=== PATIENT | female | born 2000 | race Hispanic/Latino ===

== ENCOUNTER 2018-01-15 09:36 | Emergency (ER) | payer OTHER, SELFPAY ==
[2018-01-15 11:01] LABS: Urine Bacteria 20-50 /HPF (<20); Urine Culture Reflex Order REFLEXED; Urine Mucus 1+ /HPF (NONE SEEN)
--- NOTE | 2018-01-15 11:23 | EDPHYS ---
Physician Documentation [facility] Name: Luciano Rader Age: 17 yrs Sex: Female : 2000 Arrival Date: 01/15/2018 Time: 09:39 Bed 13 Private MD: Rosalia De Oliveira ED Physician Lai Bridges HPI: 01/15 10:00 This 17 yrs old Female presents to ER via Ambulatory with complaints of Fever. pm1 10:00 The patient reports fever, not measured (subjective). Onset: The symptoms/episode pm1 began/occurred yesterday. Modifying factors: there are no obvious modifying factors. Associated signs and symptoms: Pertinent positives: sore throat, burning with urination, Pertinent negatives: cough, diarrhea, headache, nausea, vomiting. The patient has not recently seen a physician. 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 - Social history:: Smoking status: Patient/guardian denies using tobacco. ROS: 10:00 Constitutional: Negative for fever, chills, and weight loss, Eyes: Negative for injury, pm1 pain, redness, and discharge. 10:00 Neck: Negative for injury, pain, and swelling, Cardiovascular: Negative for chest pain, palpitations, and edema, Respiratory: Negative for shortness of breath, cough, wheezing, and pleuritic chest pain, Abdomen/GI: Negative for abdominal pain, nausea, vomiting, diarrhea, and constipation, Back: Negative for injury and pain. 10:00 MS/Extremity: Negative for injury and deformity, Skin: Negative for injury, rash, and discoloration, Neuro: Negative for headache, weakness, numbness, tingling, and seizure. 10:00 ENT: Positive for sore throat, Negative for ear pain, dental pain. 10:00 : Positive for burning with urination, Negative for vaginal bleeding, vaginal discharge. Exam: 10:00 Constitutional: This is a well developed, well nourished patient who is awake, alert, pm1 and in no acute distress. Head/Face: Normocephalic, atraumatic. Eyes: Pupils equal round and reactive to light, extra-ocular motions intact. Lids and lashes normal. Conjunctiva and sclera are non-icteric and not injected. Cornea within normal limits. Periorbital areas with no swelling, redness, or edema. Neck: Trachea midline, no thyromegaly or masses palpated, and no cervical lymphadenopathy. Supple, full range of motion without nuchal rigidity, or vertebral point tenderness. No Meningismus. Chest/axilla: Normal chest wall appearance and motion. Nontender with no deformity. No lesions are appreciated. Cardiovascular: Regular rate and rhythm with a normal S1 and S2. No gallops, murmurs, or rubs. No pulse deficits. Respiratory: Lungs have equal breath sounds bilaterally, clear to auscultation and percussion. No rales, rhonchi or wheezes noted. No increased work of breathing, no retractions or nasal flaring. Abdomen/GI: Soft, non-tender, with normal bowel sounds. No distension or tympany. No guarding or rebound. No evidence of tenderness throughout. Back: No spinal tenderness. No costovertebral tenderness. Full range of motion. Skin: Warm, dry with normal turgor. Normal color with no rashes, no lesions, and no evidence of cellulitis. MS/ Extremity: Pulses equal, no cyanosis. Neurovascular intact. Full, normal range of motion. 10:00 ENT: External ear(s): are unremarkable, Ear canal(s): are normal, TM's: are normal, Nose: is normal, Mouth: is normal, Posterior pharynx: Airway: normal, no evidence of obstruction, patent, Tonsils: bilaterally enlarged, with erythema, no exudate, no ulcerations. Vital Signs: 09:48 BP 122 / 77; Pulse 94; Resp 16 S; Temp 99.4(O); Pulse Ox 100% on R/A; Weight 65.77 kg jl7 (R); Height 5 ft. 1 in. (154.94 cm) (R); 10:25 BP 110 / 69; Pulse 90; Resp 16 S; Pulse Ox 100% on R/A; jl7 11:30 BP 115 / 75; Pulse 90; Resp 16; Pulse Ox 100% ; jl7 09:48 Body Mass Index 27.40 (65.77 kg, 154.94 cm) jl7 MDM: 09:45 Patient medically screened. pm1 11:21 Data reviewed: vital signs. Data interpreted: Pulse oximetry: on room air is 100 %. pm1 Interpretation: normal. Counseling: I had a detailed discussion with the patient and/or guardian regarding: the historical points, exam findings, and any diagnostic results supporting the discharge/admit diagnosis, lab results, the need for outpatient follow up, to return to the emergency department if symptoms worsen or persist or if there are any questions or concerns that arise at home. 01/15 09:52 Order name: Flu; Complete Time: 11:02 pm1 01/15 09:52 Order name: Strep; Complete Time: 11:02 pm1 01/15 10:00 Order name: Urine Microscopic Only; Complete Time: 11:02 pm1 01/15 10:04 Order name: Urine Dipstick--Ancillary (enter results); Complete Time: 11:45 2 01/15 10:04 Order name: Urine --Ancillary (enter results); Complete Time: 11:45 2 01/15 10:24 Order name: Throat Culture EDHI 01/15 09:52 Order name: Urine Dipstick-Ancillary (obtain specimen); Complete Time: 10:03 pm1 01/15 09:52 Order name: Urine Test (obtain specimen); Complete Time: 10:03 pm1 01/15 11:03 Order name: Urine Culture EDMS Administered Medications: No medications were administered Disposition: 17:13 Co-signature as Attending Physician, Lai Bridges MD. rn Disposition: 01/15/18 11:22 Discharged to Home. Impression: Acute pharyngitis, Urinary tract infection, site not specified. - Condition is Stable. - Discharge Instructions: Pharyngitis, Urinary Tract Infection. - Prescriptions for Bactrim DS 800- 160 mg Oral Tablet - take 1 tablet by ORAL route every 12 hours for 10 days; 20 tablet. - Medication Reconciliation Form, Thank You Letter, Antibiotic Education, School release form, Work release form form. - Follow up: Emergency Department; When: As needed; Reason: Worsening of condition. Follow up: Private Physician; When: 2 - 3 days; Reason: Recheck today's complaints, Continuance of care, Re-evaluation by your physician. - Problem is new. - Symptoms have improved. Signatures: Dispatcher [employer] Lai Bello MD MD rn Marinas, Patrick, WALTER CHAIR POST MACHINE OPERATOR pm1 Alex Milan RN RN jl7
--- NOTE | 2018-01-15 11:23 | ER ---
Nurse's Notes [facility] Name: Luciano Rader Age: 17 yrs Sex: Female : 2000 Arrival Date: 01/15/2018 Time: 09:39 Bed 13 Private MD: Rosalia De Oliveira Diagnosis: Acute pharyngitis;Urinary tract infection, site not specified Presentation: 01/15 09:46 Presenting complaint: Patient states: Runny nose, sore throat, fever that started jl7 yesterday. Transition of care: patient was not received from another setting of care. Onset of symptoms was January 14, 2018. Care prior to arrival: None. 09:46 Method Of Arrival: Ambulatory jl7 09:46 Acuity: CAITY 4 jl7 10:00 Initial Sepsis Screen: Does the patient meet any 2 criteria? No. Patient's initial jl7 sepsis screen is negative. Does the patient have a suspected source of infection? No. Patient's initial sepsis screen is negative. Triage Assessment: 09:48 General: Appears in no apparent distress. Behavior is calm, cooperative, appropriate jl7 for age. Pain: Complains of pain in sore throat. EENT: Throat is clear is pink. Neuro: Level of Consciousness is awake, alert, obeys commands. Cardiovascular: Patient's skin is warm and dry. Respiratory: Airway is patent Respiratory effort is even, unlabored, Respiratory pattern is regular, symmetrical, Breath sounds are clear bilaterally. Derm: Skin is pink, warm \\T\\ dry. 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 - Social history:: Smoking status: Patient/guardian denies using tobacco. Screenin:53 Abuse screen: Denies threats or abuse. Denies injuries from another. Nutritional jl7 screening: No deficits noted. Tuberculosis screening: No symptoms or risk factors identified. Fall Risk None identified. Assessment: 09:53 General: See triage assessment. jl7 10:04 Reassessment: Pt provided urine cloudy urine sample, reports "It abreu sometimes." jl7 Provider notified. Vital Signs: 09:48 BP 122 / 77; Pulse 94; Resp 16 S; Temp 99.4(O); Pulse Ox 100% on R/A; Weight 65.77 kg jl7 (R); Height 5 ft. 1 in. (154.94 cm) (R); 10:25 BP 110 / 69; Pulse 90; Resp 16 S; Pulse Ox 100% on R/A; jl7 11:30 BP 115 / 75; Pulse 90; Resp 16; Pulse Ox 100% ; jl7 09:48 Body Mass Index 27.40 (65.77 kg, 154.94 cm) 7 ED Course: 09:39 Patient arrived in ED. mr 09:40 Rosalia De Oliveira MD is Private Physician. mr 09:44 Demetri Carrillo NP is PHCP. pm1 09:44 Lai Bridges MD is Attending Physician. pm1 09:46 Alex Milan RN is Primary Nurse. jl7 09:48 Triage completed. jl7 09:48 Arm band placed on right wrist. jl7 09:53 Patient has correct armband on for positive identification. Bed in low position. Call [facility] light in reach. Side rails up X 1. Pulse ox on. NIBP on. 09:53 Flu and/or RSV swab sent to lab. Strep swab sent to lab. jl7 10:01 Urine collected: clean catch specimen, cloudy. jl7 11:48 No provider procedures requiring assistance completed. Patient did not have IV access jl during this emergency room visit. Administered Medications: No medications were administered Outcome: 11:22 Discharge ordered by . pm1 11:48 Discharged to home ambulatory. jl7 11:48 Condition: stable 11:48 Discharge instructions given to patient, Instructed on discharge instructions, follow up and referral plans. medication usage, Demonstrated understanding of instructions, follow-up care, medications, Prescriptions given X 1. 11:49 Patient left the ED. jl7 Addendum: 01/19/2018 10:21 Addendum: Culture Results: Positive urine culture. Bacteria is resistant to, has i w intermediate sensitivity, or is not tested against prescribed antibiotics. Report given to CLAUDIA for further evaluation and then to customer marketing assistant for follow up with patient. Phone call Attempt #1 pt negative for UTI symptoms. Signatures: DotySheyla Irene, RN RN iw Demetri Carrillo, OIL EXPELLER OIL EXPELLER pm1 Alex Milan, RN RN jl7
[2018-01-15 11:24] LABS: Urine Blood 1+ (NEG); Urine Glucose NEGATIVE (NEG); Urine Protein 2+ (NEG); Urine Specific Gravity >1.030 (1.005-1.030); Urine pH 5.5 (5.0-7.0)
== END 2018-01-15 11:49 | disposition home or self-care (01) ==
LOC: ER 09:36
DX: N39.0 Urinary tract infection, site not specified (principal)
CPT/HCPCS: 81003; 81015; 81025; 87070; 87077; 87081; 87086; 87088; 87186; 87804; 99283

== ENCOUNTER 2018-02-22 23:00 | Emergency (ER) | payer SELFPAY ==
--- NOTE | 2018-02-23 00:37 | EDPHYS ---
Physician Documentation [facility] Name: Luciano Rader Age: 17 yrs Sex: Female : 2000 Arrival Date: 02/22/2018 Time: 23:08 Bed 23 Private MD: ED Physician Jose Mena HPI: 02/23 00:30 This 17 yrs old Female presents to ER via Ambulatory with complaints of teena Vaginal Pain. 00:30 The patient presents with a possible exposure to a sexually transmitted disease, teena herpes. Onset: The symptoms/episode began/occurred 2 day(s) ago. Modifying factors: The symptoms are alleviated by remaining still, the symptoms are aggravated by movement, pressure, sexual intercourse, walking. Associated signs and symptoms: The patient has no apparent associated signs or symptoms. Severity of symptoms: At their worst the symptoms were moderate, in the emergency department the symptoms are unchanged. The patient is sexually active, reportedly has a single partner, female. The patient has not experienced similar symptoms in the past. 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 - Social history:: Smoking status: Patient/guardian denies using tobacco. - Ebola Screening: : No symptoms or risks identified at this time. - Family history:: not pertinent. ROS: 02/23 00:30 Constitutional: Negative for fever, chills, and weight loss, Eyes: Negative for injury, teena pain, redness, and discharge, ENT: Negative for injury, pain, and discharge, Neck: Negative for injury, pain, and swelling, Cardiovascular: Negative for chest pain, palpitations, and edema, Respiratory: Negative for shortness of breath, cough, wheezing, and pleuritic chest pain, Abdomen/GI: Negative for abdominal pain, nausea, vomiting, diarrhea, and constipation, Back: Negative for injury and pain, MS/Extremity: Negative for injury and deformity, Skin: Negative for injury, rash, and discoloration, Neuro: Negative for headache, weakness, numbness, tingling, and seizure, Psych: Negative for depression, anxiety, suicide ideation, homicidal ideation, and hallucinations, Allergy/Immunology: Negative for hives, rash, and allergies, Endocrine: Negative for neck swelling, polydipsia, polyuria, polyphagia, and marked weight changes, Hematologic/Lymphatic: Negative for swollen nodes, abnormal bleeding, and unusual bruising. : Positive for pelvic pain, burning with urination, hsv. Exam: 00:30 Constitutional: This is a well developed, well nourished patient who is awake, alert, teena and in no acute distress. Head/Face: Normocephalic, atraumatic. Eyes: Pupils equal round and reactive to light, extra-ocular motions intact. Lids and lashes normal. Conjunctiva and sclera are non-icteric and not injected. Cornea within normal limits. Periorbital areas with no swelling, redness, or edema. ENT: Nares patent. No nasal discharge, no septal abnormalities noted. Tympanic membranes are normal and external auditory canals are clear. Oropharynx with no redness, swelling, or masses, exudates, or evidence of obstruction, uvula midline. Mucous membranes moist. Neck: Trachea midline, no thyromegaly or masses palpated, and no cervical lymphadenopathy. Supple, full range of motion without nuchal rigidity, or vertebral point tenderness. No Meningismus. Chest/axilla: Normal chest wall appearance and motion. Nontender with no deformity. No lesions are appreciated. Cardiovascular: Regular rate and rhythm with a normal S1 and S2. No gallops, murmurs, or rubs. Normal PMI, no JVD. No pulse deficits. Respiratory: Lungs have equal breath sounds bilaterally, clear to auscultation and percussion. No rales, rhonchi or wheezes noted. No increased work of breathing, no retractions or nasal flaring. Abdomen/GI: Soft, non-tender, with normal bowel sounds. No distension or tympany. No guarding or rebound. No evidence of tenderness throughout. Back: No spinal tenderness. No costovertebral tenderness. Full range of motion. Skin: Warm, dry with normal turgor. Normal color with no rashes, no lesions, and no evidence of cellulitis. MS/ Extremity: Pulses equal, no cyanosis. Neurovascular intact. Full, normal range of motion. Neuro: Awake and alert, GCS 15, oriented to person, place, time, and situation. Cranial nerves II-XII grossly intact. Motor strength 5/5 in all extremities. Sensory grossly intact. Cerebellar exam normal. Normal gait. Psych: Awake, alert, with orientation to person, place and time. Behavior, mood, and affect are within normal limits. 00:30 : CVA tenderness, is absent, Pelvic Exam: External exam: Speculum exam: Vital Signs: 02/22 23:23 BP 118 / 73; Pulse 90; Resp 18; Temp 98.5(O); Pulse Ox 100% on R/A; Weight 61.69 kg; lp1 Height 5 ft. 1 in. (154.94 cm); Pain 7/10; 02/23 00:15 BP 111 / 64; Pulse 82; Resp 18; Pulse Ox 99% on R/A; lp1 01:07 BP 108 / 84; Pulse 85; Resp 18; Pulse Ox 100% on R/A; lp1 02/22 23:23 Body Mass Index 25.70 (61.69 kg, 154.94 cm) [facility] MDM: 02/22 23:52 Patient medically screened. [facility] 02/23 01:49 Data reviewed: vital signs, nurses notes, lab test result(s), EKG, radiologic studies. [facility] 02/22 23:53 Order name: Urine Microscopic Only; Complete Time: 01:47 [facility] 02/22 23:53 Order name: Urine Dipstick--Ancillary (enter results); Complete Time: 01:47 cc 02/22 23:54 Order name: Urine --Ancillary (enter results); Complete Time: 01:47 cc 02/23 00:51 Order name: HSV CULTURE W/REFLEX TYPING [facility] 02/23 01:05 Order name: Urine Culture [facility] 02/22 23:52 Order name: Urine Dipstick-Ancillary (obtain specimen); Complete Time: 23:53 cc 02/22 23:52 Order name: Urine Test (obtain specimen); Complete Time: 23:53 cc Administered Medications: 01:07 Drug: Zithromax 1 grams Route: PO; lp1 01:41 Follow up: Response: No adverse reaction lp1 01:07 Drug: Rocephin (cefTRIAXone) 1 grams Route: IM; Site: right gluteus; lp1 01:41 Follow up: Response: No adverse reaction lp1 01:07 Drug: Doxycycline 200 mg Route: PO; lp1 01:42 Follow up: Response: No adverse reaction lp1 01:07 Drug: Valtrex 1000 mg Route: PO; lp1 01:42 Follow up: Response: No adverse reaction lp1 01:52 Drug: [place] 10 mg-325 mg 1 tabs Route: PO; lp1 01:53 Follow up: Response: Medication administered at discharge. lp1 01:53 Drug: Bactrim (160 mg-800 mg (DS) 1 tablet Route: PO; lp1 01:53 Follow up: Response: Medication administered at discharge. lp1 Disposition: 02/23/18 00:36 Discharged to Home. Impression: Cystitis, Herpesviral [herpes simplex] infections - suspeceted. - Condition is Stable. - Discharge Instructions: Dysuria, Sexually Transmitted Disease, Sexually Transmitted Disease, Csle-dw-Szna, Sitz Bath. - Prescriptions for Tylenol- Codeine #3 300-30 mg Oral Tablet - take 2 tablet by ORAL route every 6 hours As needed; 30 tablet. Doxycycline Hyclate 100 mg Oral Tablet - take 1 tablet by ORAL route every 12 hours; 20 tablet. Bactrim DS 800- 160 mg Oral Tablet - take 1 tablet by ORAL route every 12 hours for 10 days; 20 tablet. - Medication Reconciliation Form, Thank You Letter, Antibiotic Education, Prescription Opioid Use form. - Follow up: Private Physician; When: 2 - 3 days; Reason: Recheck today's complaints, Continuance of care, Re-evaluation by your physician. Follow up: Jackelyn Bauer MD; When: 2 - 3 days; Reason: Recheck today's complaints, Continuance of care, Re-evaluation by your physician. - Problem is new. - Symptoms have improved. Signatures: Dispatcher [employer] [facility] Jose Mena MD MD cha Christian, Chelsea cc Pena, Laura, RN RN lp1 Corrections: (The following items were deleted from the chart) 00:52 00:34 Wound Culture+[id number].LAB.BRZ ordered. [facility] 01:54 00:36 02/23/2018 00:36 Discharged to Home. Impression: Cystitis; Herpesviral [herpes lp1 simplex] infections - suspeceted. Condition is Stable. Forms are Medication Reconciliation Form, Thank You Letter, Antibiotic Education, Prescription Opioid Use. Follow up: Private Physician; When: 2 - 3 days; Reason: Recheck today's complaints, Continuance of care, Re-evaluation by your physician. Follow up: Jackelyn Reshandra; When: 2 - 3 days; Reason: Recheck today's complaints, Continuance of care, Re-evaluation by your physician. Problem is new. Symptoms have improved. teena
--- NOTE | 2018-02-23 00:37 | ER ---
Nurse's Notes [facility] Name: Luciano Rader Age: 17 yrs Sex: Female : 2000 Arrival Date: 02/22/2018 Time: 23:08 Bed 23 Private MD: Diagnosis: Cystitis;Herpesviral [herpes simplex] infections-suspeceted Presentation: 02/22 23:22 Presenting complaint: Patient states: Vaginal pain that began 3 days ago, states today lp1 began to have "bumps down there"; States pain with urination; Denies abdominal cramping, fever, vaginal bleeding. Transition of care: patient was not received from another setting of care. Onset of symptoms was February 20, 2018. Risk Assessment: Do you want to hurt yourself or someone else? Patient reports no desire to harm self or others. Initial Sepsis Screen: Does the patient meet any 2 criteria? No. Patient's initial sepsis screen is negative. Does the patient have a suspected source of infection? No. Patient's initial sepsis screen is negative. Care prior to arrival: None. 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 - Social history:: Smoking status: Patient/guardian denies using tobacco. - Ebola Screening: : No symptoms or risks identified at this time. - Family history:: not pertinent. Screenin:25 Abuse screen: Denies threats or abuse. Denies injuries from another. Nutritional lp1 screening: No deficits noted. Tuberculosis screening: No symptoms or risk factors identified. Fall Risk None identified. Assessment: 23:26 General: Appears in no apparent distress. Behavior is calm, cooperative, appropriate lp1 for age. Pain: Complains of pain in groin Pain currently is 7 out of 10 on a pain scale. Quality of pain is described as stabbing. Neuro: Level of Consciousness is awake, alert, obeys commands. Cardiovascular: Patient's skin is warm and dry. Respiratory: Respiratory effort is even, unlabored, Respiratory pattern is regular. GI: Patient currently denies abdominal pain. : Reports burning with urination, vaginal itching. EENT: No signs and/or symptoms were reported regarding the EENT system. Derm: Skin is pink, warm \\T\\ dry. Musculoskeletal: Circulation, motion, and sensation intact. Vital Signs: 23:23 BP 118 / 73; Pulse 90; Resp 18; Temp 98.5(O); Pulse Ox 100% on R/A; Weight 61.69 kg; lp1 Height 5 ft. 1 in. (154.94 cm); Pain 7/10; 02/23 00:15 BP 111 / 64; Pulse 82; Resp 18; Pulse Ox 99% on R/A; lp1 01:07 BP 108 / 84; Pulse 85; Resp 18; Pulse Ox 100% on R/A; lp1 02/22 23:23 Body Mass Index 25.70 (61.69 kg, 154.94 cm) lp1 ED Course: 02/22 23:08 Patient arrived in ED. al2 23:22 Jennifer Young, KAMAR is Primary Nurse. lp1 23:23 Triage completed. lp1 23:23 Arm band placed on right wrist. lp1 23:25 Patient has correct armband on for positive identification. Placed in gown. Pulse ox lp1 on. NIBP on. 23:52 Jose Mena MD is Attending Physician. teena 02/23 00:34 Jackelyn Bauer MD is Referral Physician. [facility] 00:45 Wound culture swab sent to lab. lp1 01:08 No provider procedures requiring assistance completed. Patient did not have IV access lp1 during this emergency room visit. Administered Medications: 01:07 Drug: Zithromax 1 grams Route: PO; lp1 01:41 Follow up: Response: No adverse reaction lp1 01:07 Drug: Rocephin (cefTRIAXone) 1 grams Route: IM; Site: right gluteus; lp1 01:41 Follow up: Response: No adverse reaction lp1 01:07 Drug: Doxycycline 200 mg Route: PO; lp1 01:42 Follow up: Response: No adverse reaction lp1 01:07 Drug: Valtrex 1000 mg Route: PO; lp1 01:42 Follow up: Response: No adverse reaction lp1 01:52 Drug: [place] 10 mg-325 mg 1 tabs Route: PO; lp1 01:53 Follow up: Response: Medication administered at discharge. lp1 01:53 Drug: Bactrim (160 mg-800 mg (DS) 1 tablet Route: PO; lp1 01:53 Follow up: Response: Medication administered at discharge. lp1 Outcome: 00:36 Discharge ordered by . teena 01:53 Discharged to home ambulatory, with friend. lp1 01:53 Condition: good 01:53 Discharge instructions given to patient, Instructed on discharge instructions, follow up and referral plans. medication usage, Demonstrated understanding of instructions, follow-up care, medications, Prescriptions given X 3. 01:54 Patient left the ED. lp1 Signatures: Jose Mena MD MD cha Pena, Laura, RN RN lp1 Luz Butts2
[2018-02-23] MEDS ORDERED: AZITHROMYCIN 250 MG TAB ONE (00:50)
[2018-02-23] MEDS ORDERED: CEFTRIAXONE 1000 MG/VIAL ONE (00:51)
[2018-02-23] MEDS ORDERED: VALACYCLOVIR 500 MG TAB ONE (00:51)
[2018-02-23] MEDS ORDERED: DOXYCYCLINE 100 MG CAP PO ONE (00:51)
[2018-02-23] MEDS ORDERED: WATER FOR INJ,STERILE 10 ML ONE (00:52)
[2018-02-23 01:02] LABS: Urine Specific Gravity >1.030 (1.005-1.030)
[2018-02-23 01:02] LABS: Urine Blood 1+ (NEG); Urine Glucose NEGATIVE (NEG); Urine Protein NEGATIVE (NEG); Urine Specific Gravity >1.030 (1.005-1.030); Urine pH 5.5 (5.0-7.0)
[2018-02-23 01:04] LABS: Urine Bacteria 20-50 /HPF (<20); Urine Culture Reflex Order REFLEXED; Urine Mucus 2+ /HPF (NONE SEEN); Urine RBC <5 /HPF (NONE SEEN)
[2018-02-23] MEDS ORDERED: HYDROCODONE/APAP 10/325 TAB ONE (01:51)
[2018-02-23] MEDS ORDERED: SMZ./TMP. 800/160 MG TABLET ONE (01:51)
[2018-02-27 15:13] LABS: HSV CULTURE W/REFLEX TYPING REPORT
== END 2018-02-23 01:54 | disposition home or self-care (01) ==
LOC: ER 23:00
DX: N30.90 Cystitis, unspecified without hematuria (principal)
CPT/HCPCS: 81003; 81015; 81025; 87086; 87088; 87252; 96372; 99284

== ENCOUNTER 2018-07-07 11:29 | Emergency (ER) | payer OTHER, SELFPAY ==
--- NOTE | 2018-07-07 12:59 | ER ---
Nurse's Notes [facility] Name: Luciano Santiago Age: 17 yrs Sex: Female : 2000 Arrival Date: 07/07/2018 Time: 11:33 Bed 9 Private MD: None, None Diagnosis: Acute pharyngitis Presentation: 07/07 11:36 Presenting complaint: Patient states: i woke up today with fever and runny nose and hj sore throat; T- 101.1; took tylenol; its hard to swallow;. Transition of care: patient was not received from another setting of care. Onset of symptoms was July 07, 2018. Risk Assessment: Do you want to hurt yourself or someone else? Patient reports no desire to harm self or others. Initial Sepsis Screen: Does the patient meet any 2 criteria? No. Patient's initial sepsis screen is negative. Does the patient have a suspected source of infection? No. Patient's initial sepsis screen is negative. Care prior to arrival: None. 11:36 Method Of Arrival: Ambulatory 11:36 Acuity: CAITY 4 hj Triage Assessment: 11:38 General: Appears in no apparent distress. uncomfortable, Behavior is calm, cooperative, hj appropriate for age. Pain: Complains of pain in throat. EENT: Reports pain when swallowing. 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 - Social history:: Smoking status: Patient/guardian denies using tobacco, Patient/guardian denies using alcohol. - Ebola Screening: : Patient negative for fever greater than or equal to 101.5 degrees Fahrenheit, and additional compatible Ebola Virus Disease symptoms Patient denies exposure to infectious person Patient denies travel to an Ebola-affected area in the 21 days before illness onset. Screenin:38 Abuse screen: Denies threats or abuse. Denies injuries from another. Nutritional hj screening: No deficits noted. Tuberculosis screening: No symptoms or risk factors identified. Fall Risk None identified. Assessment: 11:38 Respiratory: Airway is patent Respiratory effort is even, unlabored, Respiratory hj pattern is regular, symmetrical, Breath sounds are clear. EENT: Throat. Vital Signs: 11:38 Pulse 71; Resp 18; Temp 98.6(O); Pulse Ox 100% on R/A; Weight 56.7 kg; Height 5 ft. 1 hj in. (154.94 cm); Pain 8/10; 13:24 BP 120 / 80; Pulse 75; Resp 18; Pulse Ox 100% on R/A; hj 11:38 Body Mass Index 23.62 (56.70 kg, 154.94 cm) hj ED Course: 11:33 Patient arrived in ED. mr 11:33 None, None is Private Physician. mr 11:37 Triage completed. hj 11:38 Arm band placed on left wrist. hj 11:40 Patient has correct armband on for positive identification. Bed in low position. Call hj light in reach. Side rails up X 1. 11:42 [facility] kb 11:43 Ben Aiken MD is Attending Physician. kb 12:04 Strep Sent. hj 12:04 Flu Sent. hj 12:45 Nakul Farrell, RN is Primary Nurse. hj 13:24 No provider procedures requiring assistance completed. Patient did not have IV access hj during this emergency room visit. Administered Medications: No medications were administered Outcome: 12:58 Discharge ordered by . kb 13:24 Discharged to home ambulatory, with family. hj 13:24 Condition: stable 13:24 Discharge instructions given to patient, family, Instructed on discharge instructions, follow up and referral plans. Demonstrated understanding of instructions, follow-up care. 13:24 Patient left the ED. hj Signatures: Rona Vernon FNP-C FNP-Ckb RiveraJosefa mr Nakul Farrell, RN RN abhinav
--- NOTE | 2018-07-07 12:59 | EDPHYS ---
Physician Documentation [facility] Name: Luciano Santiago Age: 17 yrs Sex: Female : 2000 Arrival Date: 07/07/2018 Time: 11:33 Bed 9 Private MD: None, None ED Physician Ben Aiken HPI: 07/07 13:10 This 17 yrs old Female presents to ER via Ambulatory with complaints of Sore kb Throat. 13:10 The patient presents with sore throat. The patient describes throat pain as constant. kb Onset: The symptoms/episode began/occurred 2 day(s) ago, and became worse this morning. Severity of symptoms: At their worst the symptoms were moderate, in the emergency department the symptoms are unchanged. Modifying factors: The symptoms are alleviated by nothing, the symptoms are aggravated by swallowing. Associated signs and symptoms: Pertinent positives: fever, rhinorrhea. The patient has not experienced similar symptoms in the past. The patient has not recently seen a physician. 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 - Social history:: Smoking status: Patient/guardian denies using tobacco, Patient/guardian denies using alcohol. - Ebola Screening: : Patient negative for fever greater than or equal to 101.5 degrees Fahrenheit, and additional compatible Ebola Virus Disease symptoms Patient denies exposure to infectious person Patient denies travel to an Ebola-affected area in the 21 days before illness onset. ROS: 12:59 Cardiovascular: Negative for chest pain, palpitations, and edema, Respiratory: Negative kb for shortness of breath, cough, wheezing, and pleuritic chest pain, Abdomen/GI: Negative for abdominal pain, nausea, vomiting, diarrhea, and constipation, Back: Negative for injury and pain, MS/Extremity: Negative for injury and deformity, Skin: Negative for injury, rash, and discoloration, Neuro: Negative for headache, weakness, numbness, tingling, and seizure. 12:59 Constitutional: Positive for fever, Negative for body aches, chills, fatigue, malaise, poor PO intake, weight loss. 12:59 ENT: Positive for rhinorrhea, sore throat. Exam: 12:59 Constitutional: This is a well developed, well nourished patient who is awake, alert, kb and in no acute distress. Head/Face: Normocephalic, atraumatic. Chest/axilla: Normal chest wall appearance and motion. Nontender with no deformity. No lesions are appreciated. Cardiovascular: Regular rate and rhythm with a normal S1 and S2. No gallops, murmurs, or rubs. Normal PMI, no JVD. No pulse deficits. Respiratory: Lungs have equal breath sounds bilaterally, clear to auscultation and percussion. No rales, rhonchi or wheezes noted. No increased work of breathing, no retractions or nasal flaring. Abdomen/GI: Soft, non-tender, with normal bowel sounds. No distension or tympany. No guarding or rebound. No evidence of tenderness throughout. Back: No spinal tenderness. No costovertebral tenderness. Full range of motion. Skin: Warm, dry with normal turgor. Normal color with no rashes, no lesions, and no evidence of cellulitis. MS/ Extremity: Pulses equal, no cyanosis. Neurovascular intact. Full, normal range of motion. Neuro: Awake and alert, GCS 15, oriented to person, place, time, and situation. Cranial nerves II-XII grossly intact. Motor strength 5/5 in all extremities. Sensory grossly intact. Cerebellar exam normal. Normal gait. 12:59 ENT: Posterior pharynx: Airway: normal, no evidence of obstruction, Tonsils: with erythema, Uvula: normal, midline, swelling, is not appreciated, erythema, that is moderate, exudate, is not appreciated. Vital Signs: 11:38 Pulse 71; Resp 18; Temp 98.6(O); Pulse Ox 100% on R/A; Weight 56.7 kg; Height 5 ft. 1 hj in. (154.94 cm); Pain 8/10; 13:24 BP 120 / 80; Pulse 75; Resp 18; Pulse Ox 100% on R/A; hj 11:38 Body Mass Index 23.62 (56.70 kg, 154.94 cm) MDM: 12:41 Patient medically screened. shaneka 13:08 Data reviewed: vital signs, nurses notes. Data interpreted: Pulse oximetry: on room air kb is 100 %. Interpretation: normal. Counseling: I had a detailed discussion with the patient and/or guardian regarding: the historical points, exam findings, and any diagnostic results supporting the discharge/admit diagnosis, lab results, the need for outpatient follow up, a family practitioner, to return to the emergency department if symptoms worsen or persist or if there are any questions or concerns that arise at home. 07/07 11:40 Order name: Flu; Complete Time: 12:35 hj 07/07 11:40 Order name: Strep; Complete Time: 12:18 hj 07/07 12:22 Order name: Throat Culture EDMS Administered Medications: No medications were administered Disposition: 07/08 10:41 Co-signature as Attending Physician, Ben Aiken MD. ma2 Disposition: 07/07/18 12:58 Discharged to Home. Impression: Acute pharyngitis. - Condition is Stable. - Discharge Instructions: Pharyngitis, [id number], Viral Respiratory Infection, [id number]. - Medication Reconciliation Form, Thank You Letter, Antibiotic Education, Prescription Opioid Use, Work release form, Family Work Release form. - Follow up: Emergency Department; When: As needed; Reason: Worsening of condition. Follow up: Private Physician; When: 2 - 3 days; Reason: Recheck today's complaints, Continuance of care, Re-evaluation by your physician. Signatures: Dispatcher [employer] EDND Rona Vernon FNP-C FNP-Ckb Joaquin, Henry, RN RN hj Alzahri, Mohammad, MD MD ma2 Corrections: (The following items were deleted from the chart) 07/07 13:24 12:58 07/07/2018 12:58 Discharged to Home. Impression: Acute pharyngitis. Condition is hj Stable. Forms are Medication Reconciliation Form, Thank You Letter, Antibiotic Education, Prescription Opioid Use. Follow up: Emergency Department; When: As needed; Reason: Worsening of condition. Follow up: Private Physician; When: 2 - 3 days; Reason: Recheck today's complaints, Continuance of care, Re-evaluation by your physician. kb
== END 2018-07-07 13:24 | disposition home or self-care (01) ==
LOC: ER 11:29
DX: J02.9 Acute pharyngitis, unspecified (principal)
CPT/HCPCS: 87070; 87081; 87804; 99283

== ENCOUNTER 2019-04-01 08:09 | Emergency (ER) | payer SELFPAY ==
[2019-04-01] MEDS ORDERED: NA CHLORIDE 0.9% 1,000 ML ONE (08:52)
[2019-04-01] MEDS ORDERED: FAMOTIDINE 20 MG/2 ML VIAL IV ONE (08:52)
[2019-04-01] MEDS ORDERED: MORPHINE 2 MG/ML SYR ONE ×2 (08:52→09:39)
[2019-04-01] MEDS ORDERED: ONDANSETRON 4 MG/2 ML VIAL ONE (08:52)
[2019-04-01 09:17] LABS: Absolute Lymphocytes (CBC) 0.5 K/uL (0.7-4.9); Basophils % 0.1 % (0-1.3); Eosinophils % 0.8 % (0-4.4); Hematocrit 40.7 % (36.0-45.0); Lymphocytes % 5.9 % (15.3-44.8); MPV 8.4 fL (7.6-11.3); Monocytes % 4.7 % (3.3-12.3); RBC Red Blood Cell Count 4.93 M/uL (3.86-4.86)
--- NOTE | 2019-04-01 09:29 | RAD REPORT ---
EXAM DESCRIPTION: US - Abdomen Exam Limited - 04/01/2019 9:16 am CLINICAL HISTORY: Abdominal pain. COMPARISON: None. FINDINGS: The gallbladder wall is not thickened. A gallstone is not seen. The biliary tree is normal caliber. IMPRESSION: Unremarkable gallbladder ultrasound.
[2019-04-01 09:38] LABS: ALT/SGPT 25 U/L (12-78); AST/SGOT 20 U/L (15-37); Albumin 3.6 g/dL (3.4-5.0); Alkaline Phosphatase 72 U/L (45-117); BUN Blood Urea Nitrogen 19 mg/dL (7-18); Bicarbonate 24 mmol/L (21-32); Bilirubin Direct < 0.1 mg/dL (0-0.2); Bilirubin Total 0.5 mg/dL (0.2-1.0); Glucose Level 100 mg/dL (74-106); Lipase 135 U/L (73-393); Potassium 3.9 mmol/L (3.5-5.1); Protein, Total 7.1 g/dL (6.4-8.2); Sodium Level 143 mmol/L (136-145)
--- NOTE | 2019-04-01 10:58 | EDPHYS ---
Physician Documentation [facility] Name: Luciano Santiago Age: 18 yrs Sex: Female : 2000 Arrival Date: 04/01/2019 Time: 08:14 Bed 19 Private MD: ED Physician Jose Mena HPI: 04/01 08:29 This 18 yrs old Female presents to ER via Ambulatory with complaints of teena Vomiting, Epigastric Pain, Back Pain. 08:29 The patient presents to the emergency department with nausea, vomiting, that is teena continuous. Onset: The symptoms/episode began/occurred 1 day(s) ago. Possible causes: unknown. The symptoms are aggravated by pressure, food , The symptoms are alleviated by nothing. Associated signs and symptoms: The patient has no apparent associated signs or symptoms. Severity of symptoms: At their worst the symptoms were mild moderate in the emergency department the symptoms are unchanged. The patient has not experienced similar symptoms in the past. 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 - Social history:: Smoking status: Patient/guardian denies using tobacco. - Ebola Screening: : No symptoms or risks identified at this time. - Family history:: not pertinent. ROS: 08:29 Constitutional: Negative for fever, chills, and weight loss, Eyes: Negative for injury, teena pain, redness, and discharge, ENT: Negative for injury, pain, and discharge, Neck: Negative for injury, pain, and swelling, Cardiovascular: Negative for chest pain, palpitations, and edema, Respiratory: Negative for shortness of breath, cough, wheezing, and pleuritic chest pain, Back: Negative for injury and pain, : Negative for injury, bleeding, discharge, and swelling, MS/Extremity: Negative for injury and deformity, Skin: Negative for injury, rash, and discoloration, Neuro: Negative for headache, weakness, numbness, tingling, and seizure, Psych: Negative for depression, anxiety, suicide ideation, homicidal ideation, and hallucinations, Allergy/Immunology: Negative for hives, rash, and allergies, Endocrine: Negative for neck swelling, polydipsia, polyuria, polyphagia, and marked weight changes, Hematologic/Lymphatic: Negative for swollen nodes, abnormal bleeding, and unusual bruising. 08:29 Abdomen/GI: Positive for abdominal pain, of the epigastric area, right upper quadrant and left upper quadrant. Exam: 08:29 Constitutional: This is a well developed, well nourished patient who is awake, alert, teena and in no acute distress. Head/Face: Normocephalic, atraumatic. Eyes: Pupils equal round and reactive to light, extra-ocular motions intact. Lids and lashes normal. Conjunctiva and sclera are non-icteric and not injected. Cornea within normal limits. Periorbital areas with no swelling, redness, or edema. ENT: Nares patent. No nasal discharge, no septal abnormalities noted. Tympanic membranes are normal and external auditory canals are clear. Oropharynx with no redness, swelling, or masses, exudates, or evidence of obstruction, uvula midline. Mucous membranes moist. Neck: Trachea midline, no thyromegaly or masses palpated, and no cervical lymphadenopathy. Supple, full range of motion without nuchal rigidity, or vertebral point tenderness. No Meningismus. Chest/axilla: Normal chest wall appearance and motion. Nontender with no deformity. No lesions are appreciated. Cardiovascular: Regular rate and rhythm with a normal S1 and S2. No gallops, murmurs, or rubs. Normal PMI, no JVD. No pulse deficits. Respiratory: Lungs have equal breath sounds bilaterally, clear to auscultation and percussion. No rales, rhonchi or wheezes noted. No increased work of breathing, no retractions or nasal flaring. Back: No spinal tenderness. No costovertebral tenderness. Full range of motion. Skin: Warm, dry with normal turgor. Normal color with no rashes, no lesions, and no evidence of cellulitis. MS/ Extremity: Pulses equal, no cyanosis. Neurovascular intact. Full, normal range of motion. Neuro: Awake and alert, GCS 15, oriented to person, place, time, and situation. Cranial nerves II-XII grossly intact. Motor strength 5/5 in all extremities. Sensory grossly intact. Cerebellar exam normal. Normal gait. Psych: Awake, alert, with orientation to person, place and time. Behavior, mood, and affect are within normal limits. 08:29 Abdomen/GI: Inspection: distension, Bowel sounds: normal, Palpation: moderate abdominal tenderness, in the epigastric area, right upper quadrant and left upper quadrant, Liver: is firm, Hernia: not appreciated. Vital Signs: 08:17 BP 112 / 74; Pulse 82; Resp 16 S; Temp 98.5(O); Pulse Ox 100% on R/A; Weight 70.76 kg aa5 (R); Height 5 ft. 1 in. (154.94 cm) (R); Pain 10/10; 09:30 BP 110 / 71; Pulse 80; Resp 16 S; Pulse Ox 100% on R/A; aa5 08:17 Body Mass Index 29.48 (70.76 kg, 154.94 cm) aa5 MDM: 08:18 Patient medically screened. [facility] 08:31 Data reviewed: vital signs, nurses notes, lab test result(s), radiologic studies, CT teena scan. 04/01 08:29 Order name: CBC with Diff [facility] 04/01 08:44 Order name: Urine Dipstick--Ancillary (enter results) [facility] 04/01 08:29 Order name: IV Saline Lock; Complete Time: 08:53 [facility] 04/01 08:29 Order name: US Abdomen Limited [facility] 04/01 08:44 Order name: Urine --Ancillary (enter results) [facility] 04/01 08:29 Order name: Labs collected and sent; Complete Time: 08:54 [facility] 04/01 08:29 Order name: Urine Dipstick-Ancillary (obtain specimen); Complete Time: 08:34 [facility] 04/01 08:29 Order name: Urine Test (obtain specimen); Complete Time: 08:34 [facility] Administered Medications: 08:45 Drug: NS 0.9% 1000 ml Route: IV; Rate: 1 bolus; Site: right antecubital; aa5 08:45 Drug: Pepcid 20 mg Route: IVP; Site: right antecubital; aa5 08:50 Follow up: Response: No adverse reaction aa5 08:45 Drug: Zofran 4 mg Route: IVP; Site: right antecubital; aa5 08:50 Follow up: Response: No adverse reaction aa5 08:47 Drug: morphine 2 mg Route: IVP; Site: right antecubital; aa5 08:50 Follow up: Response: No adverse reaction [facility] 09:26 Drug: morphine 2 mg Route: IVP; Site: right antecubital; 5 09:35 Follow up: Response: No adverse reaction [facility] Disposition: 04/01/19 10:09 Discharged to Home. Impression: Vomiting, Abdominal tenderness, Functional dyspepsia, Urinary tract infection, site not specified. - Condition is Stable. - Discharge Instructions: Abdominal Pain, Adult, Dysuria, Abdominal Pain, Adult, [id number], Form - Excuse from Work, School, or Physical Activity. - Prescriptions for Pepcid 20 mg Oral Tablet - take 1 tablet by ORAL route every 12 hours for 10 days; 20 tablet. Zofran 4 mg Oral Tablet - take 1 tablet by ORAL route every 12 hours As needed; 20 tablet. Cipro 250 mg Oral Tablet - take 1 tablet by ORAL route every 12 hours; 10 tablet. - Medication Reconciliation Form, Thank You Letter, Antibiotic Education, Prescription Opioid Use, Work release form form. - Follow up: Private Physician; When: 2 - 3 days; Reason: Recheck today's complaints, Continuance of care, Re-evaluation by your physician. Follow up: Emir Jean Baptiste; When: 2 - 3 days; Reason: Recheck today's complaints, Re-evaluation by your physician. - Problem is new. - Symptoms have improved. Signatures: Dispatcher [employer] EDJose Duarte MD MD cha Calderon, Audri, RN RN aa5 Billy Santiago RN RN tr5 Corrections: (The following items were deleted from the chart) 10:17 10:09 04/01/2019 10:09 Discharged to Home. Impression: Vomiting; Abdominal tenderness; teena Functional dyspepsia. Condition is Stable. Discharge Instructions: Abdominal Pain, Adult, Abdominal Pain, Adult, [id number]. Prescriptions for Pepcid 20 mg Oral Tablet - take 1 tablet by ORAL route every 12 hours for 10 days; 20 tablet, Zofran 4 mg Oral Tablet - take 1 tablet by ORAL route every 12 hours As needed; 20 tablet. and Forms are Medication Reconciliation Form, Thank You Letter, Antibiotic Education, Prescription Opioid Use. Follow up: Private Physician; When: 2 - 3 days; Reason: Recheck today's complaints, Continuance of care, Re-evaluation by your physician. Follow up: Emir Jean Baptiste; When: 2 - 3 days; Reason: Recheck today's complaints, Re-evaluation by your physician. Problem is new. Symptoms have improved. [facility] 10:35 10:17 04/01/2019 10:09 Discharged to Home. Impression: Vomiting; Abdominal tenderness; tr5 Functional dyspepsia; Urinary tract infection, site not specified. Condition is Stable. Discharge Instructions: Abdominal Pain, Adult, Abdominal Pain, Adult, [id number], Dysuria. Prescriptions for Pepcid 20 mg Oral Tablet - take 1 tablet by ORAL route every 12 hours for 10 days; 20 tablet, Zofran 4 mg Oral Tablet - take 1 tablet by ORAL route every 12 hours As needed; 20 tablet, Cipro 250 mg Oral Tablet - take 1 tablet by ORAL route every 12 hours; 10 tablet. and Forms are Medication Reconciliation Form, Thank You Letter, Antibiotic Education, Prescription Opioid Use. Follow up: Private Physician; When: 2 - 3 days; Reason: Recheck today's complaints, Continuance of care, Re-evaluation by your physician. Follow up: Emir Jean Baptiste; When: 2 - 3 days; Reason: Recheck today's complaints, Re-evaluation by your physician. Problem is new. Symptoms have improved. [facility]
--- NOTE | 2019-04-01 10:59 | ER ---
Nurse's Notes [facility] Name: Luciano Santiago Age: 18 yrs Sex: Female : 2000 Arrival Date: 04/01/2019 Time: 08:14 Bed 19 Private MD: Diagnosis: Vomiting;Abdominal tenderness;Functional dyspepsia;Urinary tract infection, site not specified Presentation: 04/01 08:15 Presenting complaint: Patient states: upper abd pain radiating to back that began last aa5 night. Pt also c/o nausea and vomiting. Denies diarrhea. 08:15 Transition of care: patient was not received from another setting of care. Onset of aa5 symptoms was March 2019. Risk Assessment: Do you want to hurt yourself or someone else? Patient reports no desire to harm self or others. Initial Sepsis Screen: Does the patient meet any 2 criteria? No. Patient's initial sepsis screen is negative. Does the patient have a suspected source of infection? No. Patient's initial sepsis screen is negative. Care prior to arrival: None. 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 - Social history:: Smoking status: Patient/guardian denies using tobacco. - Ebola Screening: : No symptoms or risks identified at this time. - Family history:: not pertinent. Screenin:20 Abuse screen: Denies threats or abuse. Nutritional screening: No deficits noted. aa5 Tuberculosis screening: No symptoms or risk factors identified. Fall Risk None identified. Assessment: 08:20 General: Appears comfortable, Behavior is calm, cooperative. Pain: Complains of pain in aa5 epigastric area, right upper quadrant and left upper quadrant Pain radiates to left subscapular area and right subscapular area Pain currently is 10 out of 10 on a pain scale. Quality of pain is described as sharp, Pain began "last night" Is continuous. Neuro: Level of Consciousness is awake, alert, obeys commands, Oriented to person, place, time, situation. Cardiovascular: Heart tones S1 S2 present Rhythm is regular. Respiratory: Airway is patent Respiratory effort is even, unlabored, Respiratory pattern is regular, symmetrical. GI: Abdomen is round non-distended, Bowel sounds present X 4 quads. Abd is soft X 4 quads Abdomen is tender to palpation in epigastric area and right upper quadrant Reports nausea, vomiting, Patient currently denies diarrhea. : Denies burning with urination, inability to void, urinary frequency, urgency. EENT: No signs and/or symptoms were reported regarding the EENT system. Derm: Skin is dry, Skin is yellow, Skin temperature is warm. Musculoskeletal: Range of motion: intact in all extremities. 08:50 Reassessment: Pt notified of wait time for US. Pt sitting up in bed. Pt resting with aa5 eyes closed, respirations even and unlabored. . 09:22 Reassessment: Pt back from US. Pt rates pain 8/10 on a pain scale. Pt states "the pain aa5 is only a little better". Pt sitting up in bed, A\\T\\O x 4, equal unlabored respirations. . 09:35 Reassessment: Pt now resting in bed with eyes closed, respirations even and unlabored, aa5 skin is yellow/warm/dry.. Vital Signs: 08:17 BP 112 / 74; Pulse 82; Resp 16 S; Temp 98.5(O); Pulse Ox 100% on R/A; Weight 70.76 kg aa5 (R); Height 5 ft. 1 in. (154.94 cm) (R); Pain 10/10; 09:30 BP 110 / 71; Pulse 80; Resp 16 S; Pulse Ox 100% on R/A; aa5 08:17 Body Mass Index 29.48 (70.76 kg, 154.94 cm) aa5 ED Course: 08:14 Patient arrived in ED. as 08:15 Arm band placed on Patient placed in an exam room, on a stretcher. aa5 08:15 Patient has correct armband on for positive identification. aa5 08:18 Jose Mena MD is Attending Physician. [facility] 08:26 Lorelei Guerra, RN is Primary Nurse. aa5 08:27 Triage completed. aa5 08:40 Initial lab(s) drawn, by me, sent to lab. Inserted saline lock: 20 gauge in right aa5 antecubital area, using aseptic technique. Blood collected. 08:40 No provider procedures requiring assistance completed. aa5 10:09 Emir Jean Baptiste MD is Referral Physician. teena 10:35 IV discontinued. tr5 Administered Medications: 08:45 Drug: NS 0.9% 1000 ml Route: IV; Rate: 1 bolus; Site: right antecubital; aa5 08:45 Drug: Pepcid 20 mg Route: IVP; Site: right antecubital; aa5 08:50 Follow up: Response: No adverse reaction aa5 08:45 Drug: Zofran 4 mg Route: IVP; Site: right antecubital; aa5 08:50 Follow up: Response: No adverse reaction aa5 08:47 Drug: morphine 2 mg Route: IVP; Site: right antecubital; aa5 08:50 Follow up: Response: No adverse reaction aa5 09:26 Drug: morphine 2 mg Route: IVP; Site: right antecubital; aa5 09:35 Follow up: Response: No adverse reaction aa5 Outcome: 10:09 Discharge ordered by . [facility] 10:34 Discharged to home ambulatory. tr5 10:34 Condition: stable 10:34 Discharge instructions given to patient, Instructed on discharge instructions, follow up and referral plans. medication usage, Demonstrated understanding of instructions, follow-up care, medications, Prescriptions given X 3. 10:35 Patient left the ED. tr5 Signatures: Jose Mena MD MD cha Martinez, Amelia as Calderon, Audri RN RN aa5 Billy Santiago RN RN tr5
[2019-04-01 11:02] LABS: Urine Blood 3+ (NEG); Urine Glucose NEGATIVE (NEG); Urine Protein TRACE (NEG)
[2019-04-01 11:59] LABS: Blood Morphology Comment NOT SEEN (NOT SEEN); Platelet Estimate ADEQ; Urine White Blood Cell Casts OK
== END 2019-04-01 10:35 | disposition home or self-care (01) ==
LOC: ER 08:09
DX: R11.2 Nausea with vomiting, unspecified (principal); R10.10 Upper abdominal pain, unspecified
CPT/HCPCS: 36415; 76705; 80048; 80076; 81003; 81025; 83690; 85025; 96374; 96375; 99284; J2270; J2405; J7030

== ENCOUNTER 2019-04-03 20:11 | Emergency (ER) | payer SELFPAY ==
--- NOTE | 2019-04-03 21:05 | ER ---
Nurse's Notes [facility] Name: Luciano Santiago Age: 18 yrs Sex: Female : 2000 Arrival Date: 04/03/2019 Time: 20:14 Bed 17 [facility] MD: Diagnosis: Upper abdominal pain, unspecified Presentation: 04/03 20:17 Presenting complaint: Patient states: abd pain and upper back pain sine 04/01/19 after ak1 being seen in ER. 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 Transition of care: patient was not received from another setting of care. Onset of symptoms is unknown. Risk Assessment: Do you want to hurt yourself or someone else? Patient reports no desire to harm self or others. Initial Sepsis Screen: Does the patient meet any 2 criteria? No. Patient's initial sepsis screen is negative. Does the patient have a suspected source of infection? No. Patient's initial sepsis screen is negative. Care prior to arrival: None. 20:17 Method Of Arrival: Ambulatory ak1 20:17 Acuity: CAITY 3 ak1 Triage Assessment: 20:18 General: Appears uncomfortable, Behavior is calm, cooperative. 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 - Social history:: Smoking status: Patient/guardian denies using tobacco. - Ebola Screening: : No symptoms or risks identified at this time. Screenin:41 Abuse screen: Denies threats or abuse. Denies injuries from another. Nutritional cc3 screening: No deficits noted. Tuberculosis screening: No symptoms or risk factors identified. Fall Risk Ambulatory Aid- None/Bed Rest/Nurse Assist (0 pts). Gait- Normal/Bed Rest/Wheelchair (0 pts) Mental Status- Oriented to own ability (0 pts). Assessment: 20:41 General: Appears in no apparent distress. uncomfortable, Behavior is calm, cooperative, cc3 appropriate for age. Pain: Complains of pain in upper back pain, abdomen. Neuro: Level of Consciousness is awake, alert, obeys commands, Oriented to person, place, time, situation, Appropriate for age. Cardiovascular: Denies chest pain, Capillary refill < 3 seconds Patient's skin is warm and dry. Respiratory: Airway is patent Respiratory effort is even, unlabored, Respiratory pattern is regular, symmetrical. GI: Abdomen is round non-distended. : No signs and/or symptoms were reported regarding the genitourinary system. EENT: No signs and/or symptoms were reported regarding the EENT system. Derm: Skin is intact, is healthy with good turgor, Skin is pink, warm \T\ dry. normal. Musculoskeletal: Circulation, motion, and sensation intact. Range of motion: intact in all extremities. 21:30 Reassessment: Patient appears in no apparent distress at this time. Patient and/or cc3 family updated on plan of care and expected duration. Pain level reassessed. Patient is alert, oriented x 3, equal unlabored respirations, skin warm/dry/pink. PARTS SALES ASSOCIATE Saulo discharged the patient home with prescription given. No IV cannula in situ. Patient left ER vitally stable and ambulatory with her friend. No valuables left in the patient's room. Patient states feeling better. Patient states symptoms have improved. Vital Signs: 20:16 BP 126 / 68; Pulse 76; Resp 16; Temp 98.1; Pulse Ox 100% on R/A; Weight 70.76 kg (R); ak1 Height 5 ft. 1 in. (154.94 cm) (R); Pain 8/10; 21:18 BP 120 / 67; Pulse 75; Resp 15 S; Pulse Ox 100% on R/A; cc3 20:16 Body Mass Index 29.48 (70.76 kg, 154.94 cm) ak1 ED Course: 20:14 Patient arrived in ED. mr 20:16 Arm band placed on Patient placed in an exam room, on a stretcher, Patient notified of ak1 wait time. 20:18 Triage completed. ak1 20:28 Rona Vernon FNP-C [facility]. kb 20:28 Kale Cabrera MD is Attending Physician. kb 20:41 Gina Fox is Primary Nurse. cc3 20:41 Patient has correct armband on for positive identification. Bed in low position. Call cc3 light in reach. Side rails up X 1. Pulse ox on. NIBP on. 21:30 No provider procedures requiring assistance completed. Patient did not have IV access cc3 during this emergency room visit. Administered Medications: No medications were administered Outcome: 21:04 Discharge ordered by . shaneka 21:30 Discharged to home ambulatory, with friend. cc3 21:30 Condition: stable 21:30 Discharge instructions given to patient, Instructed on discharge instructions, follow up and referral plans. medication usage, Demonstrated understanding of instructions, follow-up care, medications, Prescriptions given X 2. 21:34 Patient left the ED. cc3 Signatures: Rona Vernon, DIRECTOR OF SCOUT WORK-C DIRECTOR OF SCOUT WORK-Josefa Abrams mr Kinza Hudson, RN RN ak1 Gina Fox cc3
--- NOTE | 2019-04-03 21:05 | EDPHYS ---
Physician Documentation [facility] Name: Luciano Santiago Age: 18 yrs Sex: Female : 2000 Arrival Date: 04/03/2019 Time: 20:14 Bed 17 Private MD: ED Physician Kale Cabrera HPI: 04/03 21:00 This 18 yrs old Female presents to ER via Ambulatory with complaints of kb Abdominal Pain. 21:00 The patient presents with abdominal pain in the upper abdomen. Onset: The kb symptoms/episode began/occurred today. The symptoms do not radiate. Associated signs and symptoms: none. The symptoms are described as intermittent. 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 Severity of pain: At its worst the pain was moderate in the emergency department the pain has resolved. The patient has experienced similar episodes in the past. The patient has been recently seen at the [facility] Emergency Department, this week, for similar complaints. Pt reports she was seen on 04/01/19 for upper abd pain. 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 - Social history:: Smoking status: Patient/guardian denies using tobacco. - Ebola Screening: : No symptoms or risks identified at this time. ROS: 21:00 Constitutional: Negative for fever, chills, and weight loss, Cardiovascular: Negative kb for chest pain, palpitations, and edema, Respiratory: Negative for shortness of breath, cough, wheezing, and pleuritic chest pain, Back: Negative for injury and pain, : Negative for injury, bleeding, discharge, and swelling, MS/Extremity: Negative for injury and deformity, Skin: Negative for injury, rash, and discoloration, Neuro: Negative for headache, weakness, numbness, tingling, and seizure. 21:00 Abdomen/GI: Positive for abdominal pain, Negative for nausea, vomiting, and diarrhea. Exam: 21:00 Constitutional: This is a well developed, well nourished patient who is awake, alert, kb and in no acute distress. Head/Face: Normocephalic, atraumatic. ENT: Nares patent. No nasal discharge, no septal abnormalities noted. Tympanic membranes are normal and external auditory canals are clear. Oropharynx with no redness, swelling, or masses, exudates, or evidence of obstruction, uvula midline. Mucous membranes moist. Neck: Trachea midline, no thyromegaly or masses palpated, and no cervical lymphadenopathy. Supple, full range of motion without nuchal rigidity, or vertebral point tenderness. No Meningismus. Chest/axilla: Normal chest wall appearance and motion. Nontender with no deformity. No lesions are appreciated. Cardiovascular: Regular rate and rhythm with a normal S1 and S2. No gallops, murmurs, or rubs. Normal PMI, no JVD. No pulse deficits. Respiratory: Lungs have equal breath sounds bilaterally, clear to auscultation and percussion. No rales, rhonchi or wheezes noted. No increased work of breathing, no retractions or nasal flaring. Abdomen/GI: Soft, non-tender, with normal bowel sounds. No distension or tympany. No guarding or rebound. No evidence of tenderness throughout. Back: No spinal tenderness. No costovertebral tenderness. Full range of motion. Skin: Warm, dry with normal turgor. Normal color with no rashes, no lesions, and no evidence of cellulitis. MS/ Extremity: Pulses equal, no cyanosis. Neurovascular intact. Full, normal range of motion. Neuro: Awake and alert, GCS 15, oriented to person, place, time, and situation. Cranial nerves II-XII grossly intact. Motor strength 5/5 in all extremities. Sensory grossly intact. Cerebellar exam normal. Normal gait. Vital Signs: 20:16 BP 126 / 68; Pulse 76; Resp 16; Temp 98.1; Pulse Ox 100% on R/A; Weight 70.76 kg (R); ak1 Height 5 ft. 1 in. (154.94 cm) (R); Pain 8/10; 21:18 BP 120 / 67; Pulse 75; Resp 15 S; Pulse Ox 100% on R/A; cc3 20:16 Body Mass Index 29.48 (70.76 kg, 154.94 cm) ak1 MDM: 20:28 Patient medically screened. kb 20:59 Data reviewed: vital signs, nurses notes. Data reviewed: old medical records, labs and kb US from 04/01/19 reviewed and discussed with pt. Data interpreted: Pulse oximetry: on room air is 100 %. Interpretation: normal. Counseling: I had a detailed discussion with the patient and/or guardian regarding: the historical points, exam findings, and any diagnostic results supporting the discharge/admit diagnosis, the need for outpatient follow up, a family practitioner, a automotive technology instructor, to return to the emergency department if symptoms worsen or persist or if there are any questions or concerns that arise at home. Administered Medications: No medications were administered Disposition: 04/04 21:21 Co-signature as Attending Physician, Kale Cabrera MD. Disposition: 04/03/19 21:04 Discharged to Home. Impression: Upper abdominal pain, unspecified. - Condition is Stable. - Discharge Instructions: Abdominal Pain, Adult, [id number]. - Prescriptions for Cyclobenzaprine 10 mg Oral Tablet - take 1 tablet by ORAL route every 8 hours As needed; 12 tablet. Diclofenac Sodium 75 mg Oral Tablet, Delayed Release (E.C.) - take 1 tablet by ORAL route 2 times per day As needed; 30 tablet. - Medication Reconciliation Form, Thank You Letter, Antibiotic Education, Prescription Opioid Use, Work release form form. - Follow up: Emergency Department; When: As needed; Reason: Worsening of condition. Follow up: Private Physician; When: 2 - 3 days; Reason: Recheck today's complaints, Continuance of care, Re-evaluation by your physician. Signatures: Rona Vernon FNP-C FNP-Ckb Krenek, Amber, RN RN ak1 Kale Cabrera MD MD gs Cordel, Charlene cc3 Corrections: (The following items were deleted from the chart) 04/03 21:34 21:04 04/03/2019 21:04 Discharged to Home. Impression: Upper abdominal pain, cc3 unspecified. Condition is Stable. Forms are Medication Reconciliation Form, Thank You Letter, Antibiotic Education, Prescription Opioid Use. Follow up: Emergency Department; When: As needed; Reason: Worsening of condition. Follow up: Private Physician; When: 2 - 3 days; Reason: Recheck today's complaints, Continuance of care, Re-evaluation by your physician. kb
== END 2019-04-03 21:34 | disposition home or self-care (01) ==
LOC: ER 20:11
DX: R10.10 Upper abdominal pain, unspecified (principal)
CPT/HCPCS: 99283

== ENCOUNTER 2019-04-29 14:01 | Emergency (ER) | payer SELFPAY ==
--- NOTE | 2019-04-29 15:34 | EDPHYS ---
Physician Documentation [facility] Name: Luciano Santiago Age: 18 yrs Sex: Female : 2000 Arrival Date: 04/29/2019 Time: 14:03 Bed 9 Private MD: ED Physician Jose Mena HPI: 04/29 14:35 This 18 yrs old Female presents to ER via Ambulatory with complaints of Sore pm1 Throat, Fever. 14:35 The patient presents with sore throat. The patient describes throat pain as raw, pm1 scratchy. Onset: The symptoms/episode began/occurred 3 day(s) ago. Severity of symptoms: in the emergency department the symptoms are unchanged. Modifying factors: The symptoms are alleviated by nothing, the symptoms are aggravated by fluids, foods, Patient's oral intake status: good. Associated signs and symptoms: Pertinent positives: cough, chest pain with deep breathing, Pertinent negatives fever, flu-like symptoms, shortness of breath. The patient has not recently seen a physician. 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 - Ebola Screening: : Patient denies travel to an Ebola-affected area in the 21 days before illness onset. ROS: 14:35 Constitutional: Negative for fever, chills, and weight loss, Eyes: Negative for injury, pm1 pain, redness, and discharge. 14:35 Neck: Negative for injury, pain, and swelling, Respiratory: Negative for shortness of breath, cough, wheezing, and pleuritic chest pain. 14:35 Abdomen/GI: Negative for abdominal pain, nausea, vomiting, diarrhea, and constipation, Back: Negative for injury and pain, MS/Extremity: Negative for injury and deformity, Skin: Negative for injury, rash, and discoloration. 14:35 ENT: Positive for sore throat, Negative for ear pain, difficulty swallowing, difficulty handling secretions, hoarseness. 14:35 Cardiovascular: Positive for chest pain, with cough, and deep breathing. Exam: 14:35 Constitutional: This is a well developed, well nourished patient who is awake, alert, pm1 and in no acute distress. Head/Face: Normocephalic, atraumatic. Eyes: Pupils equal round and reactive to light, extra-ocular motions intact. Lids and lashes normal. Conjunctiva and sclera are non-icteric and not injected. Cornea within normal limits. Periorbital areas with no swelling, redness, or edema. Neck: Trachea midline, no thyromegaly or masses palpated, and no cervical lymphadenopathy. Supple, full range of motion without nuchal rigidity, or vertebral point tenderness. No Meningismus. Chest/axilla: Normal chest wall appearance and motion. Nontender with no deformity. No lesions are appreciated. Cardiovascular: Regular rate and rhythm with a normal S1 and S2. No gallops, murmurs, or rubs. Normal PMI, no JVD. No pulse deficits. Respiratory: Lungs have equal breath sounds bilaterally, clear to auscultation and percussion. No rales, rhonchi or wheezes noted. No increased work of breathing, no retractions or nasal flaring. Abdomen/GI: Soft, non-tender, with normal bowel sounds. No distension or tympany. No guarding or rebound. No evidence of tenderness throughout. Back: No spinal tenderness. No costovertebral tenderness. Full range of motion. Skin: Warm, dry with normal turgor. Normal color with no rashes, no lesions, and no evidence of cellulitis. MS/ Extremity: Pulses equal, no cyanosis. Neurovascular intact. Full, normal range of motion. 14:35 ENT: External ear(s): are unremarkable, Ear canal(s): are normal, TM's: are normal, Nose: is normal, Mouth: is normal, Posterior pharynx: Airway: no evidence of obstruction, Tonsils: bilaterally enlarged, with erythema, no exudate, no ulcerations, peritonsillar mass, is not appreciated, pooling of secretions, is not appreciated. Vital Signs: 14:05 BP 119 / 65; Pulse 77; Resp 18; Temp 98.1(TE); Pulse Ox 100% on R/A; Weight 68.95 kg; hj Height 5 ft. 1 in. (154.94 cm); Pain 9/10; 14:05 Body Mass Index 28.72 (68.95 kg, 154.94 cm) MDM: 14:20 Patient medically screened. [facility] 15:32 Data reviewed: vital signs. Data interpreted: Pulse oximetry: on room air is 100 %. pm1 Interpretation: normal. Counseling: I had a detailed discussion with the patient and/or guardian regarding: the historical points, exam findings, and any diagnostic results supporting the discharge/admit diagnosis, lab results, the need for outpatient follow up, to return to the emergency department if symptoms worsen or persist or if there are any questions or concerns that arise at home. 04/29 14:28 Order name: Pepin Screen Profile; Complete Time: 15:32 pm1 04/29 14:28 Order name: Strep; Complete Time: 15:19 pm1 04/29 14:28 Order name: Flu; Complete Time: 15:32 pm1 04/29 15:13 Order name: Throat Culture EDMS Administered Medications: No medications were administered Disposition: 04/30 07:13 Co-signature as Attending Physician, Jose Mena MD I agree with the assessment and [facility] plan of care. Disposition: 04/29/19 15:33 Discharged to Home. Impression: Acute nasopharyngitis [common cold]. - Condition is Stable. - Discharge Instructions: Upper Respiratory Infection, Adult. - Prescriptions for Guaifenesin AC 10- 100 mg/5 mL Oral Liquid - take 10 milliliter by ORAL route every 4 hours As needed; 240 milliliter. - Work release form, Medication Reconciliation Form, Thank You Letter, Antibiotic Education, Prescription Opioid Use form. - Follow up: Emergency Department; When: As needed; Reason: Worsening of condition. Follow up: Private Physician; When: 2 - 3 days; Reason: Recheck today's complaints, Continuance of care, Re-evaluation by your physician. - Problem is new. - Symptoms have improved. Signatures: Dispatcher [employer] EDMS Kelly Allison RN RN aj1 Jose Mena MD MD cha Joaquin, Henry, RN RN hj Marinas, Patrick, NP ENAMEL BURNER pm1 Corrections: (The following items were deleted from the chart) 04/29 15:53 15:33 04/29/2019 15:33 Discharged to Home. Impression: Acute nasopharyngitis [common aj1 cold]. Condition is Stable. Forms are Medication Reconciliation Form, Thank You Letter, Antibiotic Education, Prescription Opioid Use. Follow up: Emergency Department; When: As needed; Reason: Worsening of condition. Follow up: Private Physician; When: 2 - 3 days; Reason: Recheck today's complaints, Continuance of care, Re-evaluation by your physician. Problem is new. Symptoms have improved. pm1
--- NOTE | 2019-04-29 15:34 | ER ---
Nurse's Notes [facility] Name: Luciano Santiago Age: 18 yrs Sex: Female : 2000 Arrival Date: 04/29/2019 Time: 14:03 Bed 9 Private MD: Diagnosis: Acute nasopharyngitis [common cold] Presentation: 04/29 14:04 Presenting complaint: Patient states: i had fever and stuffy nose for the last 2 days, hj yesterday when i breathe in my chest hurts; reports throat pain;. Transition of care: patient was not received from another setting of care. Onset of symptoms was April 29, 2019. Risk Assessment: Do you want to hurt yourself or someone else? Patient reports no desire to harm self or others. Initial Sepsis Screen: Does the patient meet any 2 criteria? No. Patient's initial sepsis screen is negative. Does the patient have a suspected source of infection? No. Patient's initial sepsis screen is negative. Care prior to arrival: None. 14:04 Method Of Arrival: Ambulatory 14:04 Acuity: CAITY 4 hj PUBLIC RELATIONS STUDIES DIRECTOR: 14:05 LMP 04/21/2019 Historical: - Allergies: 14:05 No Known Allergies; hj - PMHx: 14:05 None; hj - PSHx: 14:05 None; hj - Immunization history:: Adult Immunizations up to date. - Ebola Screening: : Patient denies travel to an Ebola-affected area in the 21 days before illness onset. Screenin:50 Abuse screen: Denies threats or abuse. Denies injuries from another. Nutritional aj1 screening: No deficits noted. Tuberculosis screening: No symptoms or risk factors identified. Fall Risk None identified. Assessment: 15:50 General: Appears in no apparent distress. comfortable, Behavior is calm, cooperative, aj1 appropriate for age. Pain: Complains of pain in left aspect of posterior pharynx and right aspect of posterior pharynx Pain does not radiate. Neuro: Level of Consciousness is awake, alert, obeys commands. Cardiovascular: Patient's skin is warm and dry. Respiratory: Reports cough that is productive, Airway is patent Respiratory effort is even, unlabored, Respiratory pattern is regular, symmetrical, Breath sounds are clear bilaterally. GI: No signs and/or symptoms were reported involving the gastrointestinal system. : No signs and/or symptoms were reported regarding the genitourinary system. EENT: Throat is reddened bilaterally. EENT: Reports nasal congestion nasal discharge. Derm: No signs and/or symptoms reported regarding the dermatologic system. Skin is pink, warm \T\ dry. normal. Musculoskeletal: No signs and/or symptoms reported regarding the musculoskeletal system. Circulation, motion, and sensation intact. Vital Signs: 14:05 BP 119 / 65; Pulse 77; Resp 18; Temp 98.1(TE); Pulse Ox 100% on R/A; Weight 68.95 kg; hj Height 5 ft. 1 in. (154.94 cm); Pain 9/10; 14:05 Body Mass Index 28.72 (68.95 kg, 154.94 cm) ED Course: 14:03 Patient arrived in ED. rg4 14:05 Triage completed. hj 14:05 Arm band placed on right wrist. hj 14:18 Demetri Carrillo NP is PHCP. pm1 14:19 Jose Mena MD is Attending Physician. pm1 14:39 [place] Screen Profile Sent. ca1 14:39 Strep Sent. ca1 14:39 Flu Sent. ca1 15:12 Kelly Allison, RN is Primary Nurse. aj1 15:50 Patient has correct armband on for positive identification. Bed in low position. aj1 15:50 No provider procedures requiring assistance completed. Patient did not have IV access aj1 during this emergency room visit. Administered Medications: No medications were administered Outcome: 15:33 Discharge ordered by . pm1 15:50 Discharged to home ambulatory. aj1 15:50 Condition: good 15:50 Discharge instructions given to patient, Instructed on discharge instructions, follow up and referral plans. medication usage, Demonstrated understanding of instructions, follow-up care, medications, Prescriptions given X 1. 15:53 Patient left the ED. aj1 Signatures: Kelly Allison RN RN aj1 Nakul Farrell RN RN Demetri Carrillo NP PICTURES EDITOR pm1 Latesha Rodarte rg4 Sherri Montesinos RN RN ca1 Corrections: (The following items were deleted from the chart) 14:07 14:05 Pulse 77bpm; Resp 18bpm; Pulse Ox 100% RA; Temp 98.1F Temporal; 68.95 kg; Height hj 5 ft. 1 in.; BMI: 28.7; Pain 9/10; hj 14:07 14:05 Pulse 77bpm; Resp 18bpm; Pulse Ox 100% RA; Temp 98.1F Temporal; 68.95 kg; Height hj 5 ft. 1 in.; BMI: 28.7; Pain 06/03; hj
== END 2019-04-29 15:53 | disposition home or self-care (01) ==
LOC: ER 14:01
DX: J00 Acute nasopharyngitis [common cold] (principal)
CPT/HCPCS: 36415; 86308; 87070; 87081; 87804; 99283

== ENCOUNTER 2020-01-03 08:12 | Emergency (ER) | payer SELFPAY ==
--- NOTE | 2020-01-03 08:35 | EDPHYS ---
Physician Documentation [facility] Name: Luciano Santiago Age: 19 yrs Sex: Female : 2000 Arrival Date: 01/03/2020 Time: 08:15 Bed 18 Private MD: ED Physician Martin Khan HPI: 01/02 08:29 This 19 yrs old Female presents to ER via Ambulatory with complaints of Rash. cp 08:29 The patient's rash thought to be caused by an unknown cause. The rash is located on the cp body diffusely. Onset: The symptoms/episode began/occurred this morning. Associated signs and symptoms: Pertinent positives: itching, Pertinent negatives: difficulty breathing, fever, swelling of lips, swelling of throat, swelling of tongue. Treatment given at home: none. Historical: - Allergies: 08:24 No Known Allergies; ss - Home Meds: 08:24 None [Active]; ss - PMHx: 08:24 None; ss - PSHx: 08:24 None; ss - Immunization history:: Adult Immunizations up to date. - Social history:: Smoking status: Patient denies any tobacco usage or history of. ROS: 08:30 Eyes: Negative for injury, pain, redness, and discharge. cp 08:30 Constitutional: Negative for body aches, chills, fever. 08:30 ENT: Negative for drainage from ear(s), ear pain, sore throat, difficulty swallowing, difficulty handling secretions. 08:30 Respiratory: Negative for cough, shortness of breath, wheezing. 08:30 Abdomen/GI: Negative for abdominal pain, nausea, vomiting, and diarrhea. 08:30 Skin: Positive for rash, diffusely. 08:30 All other systems are negative. Exam: 08:31 Constitutional: The patient appears in no acute distress, alert, awake, non-toxic, well cp developed, well nourished. 08:31 Eyes: Periorbital structures: appear normal, Conjunctiva: normal, no exudate, no injection, Lids and lashes: appear normal, bilaterally. 08:31 ENT: External ear(s): are unremarkable, Nose: is normal, Mouth: Lips: moist, Oral mucosa: moist, Posterior pharynx: Airway: no evidence of obstruction, patent. 08:31 Cardiovascular: Rate: normal. 08:31 Respiratory: the patient does not display signs of respiratory distress, Respirations: normal, no use of accessory muscles. 08:31 Skin: rash can be described as urticarial, and is diffusely located. Vital Signs: 08:22 BP 113 / 63; Pulse 92; Resp 14; Temp 98.1(TE); Pulse Ox 99% on R/A; Weight 72.57 kg; ss Height 5 ft. 1 in. (154.94 cm); Pain 0/10; 08:22 Body Mass Index 30.23 (72.57 kg, 154.94 cm) ss MDM: 08:18 Patient medically screened. cp 08:33 Differential diagnosis: cellulitis, urticaria, hives, scabies. Data reviewed: vital cp signs, nurses notes, and as a result, I will discharge patient. 01/02 08:46 Order name: Urine Dipstick--Ancillary (enter results) eb 01/02 08:46 Order name: Urine --Ancillary (enter results) eb 01/02 08:29 Order name: Urine Dipstick-Ancillary (obtain specimen); Complete Time: 08:49 cp 04 08:29 Order name: Urine Test (obtain specimen); Complete Time: 08:49 cp Administered Medications: 08:46 Drug: Benadryl 50 mg Route: PO; em 08:49 Follow up: Response: Medication administered at discharge. em 08:46 Drug: Pepcid 20 mg Route: PO; em 08:49 Follow up: Response: Medication administered at discharge. em Disposition: 09:00 Chart complete. cp 10:51 Co-signature as Attending Physician, Martin Khan MD I agree with the assessment and kdr plan of care. Disposition: 01/03/20 08:34 Discharged to Home. Impression: Urticaria, unspecified. - Condition is Stable. - Discharge Instructions: Hives. - Prescriptions for Prednisone 20 mg Oral Tablet - take 2 tablet by ORAL route once daily for 5 days; 10 tablet. Pepcid 20 mg Oral Tablet - take 1 tablet by ORAL route every 12 hours for 10 days; 10 tablet. - Medication Reconciliation Form, Thank You Letter, Antibiotic Education, Prescription Opioid Use form. - Follow up: Private Physician; When: 2 - 3 days; Reason: Worsening of condition. - Problem is new. - Symptoms have improved. Signatures: Dispatcher [facility] Martin Khan MD MD [facility] Gold Flower RN RN em Cherelle Rock RN RN ss Jose Coreas PA PA cp Corrections: (The following items were deleted from the chart) 08:52 08:34 01/03/2020 08:34 Discharged to Home. Impression: Urticaria, unspecified. em Condition is Stable. Forms are Medication Reconciliation Form, Thank You Letter, Antibiotic Education, Prescription Opioid Use. Follow up: Private Physician; When: 2 - 3 days; Reason: Worsening of condition. Problem is new. Symptoms have improved. cp
--- NOTE | 2020-01-03 08:35 | ER ---
Nurse's Notes [facility] Name: Luciano Santiago Age: 19 yrs Sex: Female : 2000 Arrival Date: 01/03/2020 Time: 08:15 Bed 18 Private MD: Diagnosis: Urticaria, unspecified Presentation: 01/02 08:22 Chief complaint: Patient states: itchy, rash to legs, arms and torso that patient ss noticed this AM. Denies difficulty breathing. Coronavirus screen: Proceed with normal triage. Patient denies a cough. Patient denies shortness of breath or difficulty breathing. Patient denies measured and/or subjective temperature greater than 100.4F prior to today's visit. Patient denies travel on a cruise ship or to a country the [facility] currently lists as an affected area. Patient denies contact with known and/or suspected case of COVID-19. Ebola Screen: Patient denies exposure to infectious person. Patient denies travel to an Ebola-affected area in the 21 days before illness onset. Initial Sepsis Screen: Does the patient meet any 2 criteria? No. Patient's initial sepsis screen is negative. Does the patient have a suspected source of infection? No. Patient's initial sepsis screen is negative. Risk Assessment: Do you want to hurt yourself or someone else? Patient reports no desire to harm self or others. Onset of symptoms was January 03, 2020. 08:22 Method Of Arrival: Ambulatory 08:22 Acuity: CAITY 5 ss Historical: - Allergies: 08:24 No Known Allergies; ss - Home Meds: 08:24 None [Active]; ss - PMHx: 08:24 None; ss - PSHx: 08:24 None; ss - Immunization history:: Adult Immunizations up to date. - Social history:: Smoking status: Patient denies any tobacco usage or history of. Screenin:26 Abuse screen: Denies threats or abuse. Nutritional screening: No deficits noted. em Tuberculosis screening: No symptoms or risk factors identified. Fall Risk None identified. Assessment: 08:28 General: Appears in no apparent distress. comfortable, Behavior is calm, cooperative, em Denies fever. Pain: Denies pain. Neuro: Level of Consciousness is awake, alert, obeys commands, Oriented to person, place, time, situation, Appropriate for age. Cardiovascular: Capillary refill < 3 seconds Patient's skin is warm and dry. Respiratory: Airway is patent Respiratory effort is even, unlabored, Respiratory pattern is regular, symmetrical. GI: Abdomen is flat. Derm: Skin is intact, is healthy with good turgor, Rash noted that is urticaria, on right arm, left arm, right leg and left leg Reports itching, since this morning after waking up. Musculoskeletal: Capillary refill < 3 seconds, Range of motion: intact in all extremities. Vital Signs: 08:22 BP 113 / 63; Pulse 92; Resp 14; Temp 98.1(TE); Pulse Ox 99% on R/A; Weight 72.57 kg; ss Height 5 ft. 1 in. (154.94 cm); Pain 0/10; 08:22 Body Mass Index 30.23 (72.57 kg, 154.94 cm) ED Course: 08:15 Patient arrived in ED. mr 08:16 Jose Coreas PA is PHCP. cp 08:16 Martin Khan MD is Attending Physician. cp 08:18 Gold Flower, RN is Primary Nurse. em 08:23 Triage completed. ss 08:24 Arm band placed on left wrist. ss 08:26 Patient has correct armband on for positive identification. Call light in reach. em 08:51 No provider procedures requiring assistance completed. Patient did not have IV access em during this emergency room visit. Administered Medications: 08:46 Drug: Benadryl 50 mg Route: PO; em 08:49 Follow up: Response: Medication administered at discharge. em 08:46 Drug: Pepcid 20 mg Route: PO; em 08:49 Follow up: Response: Medication administered at discharge. em Outcome: 08:34 Discharge ordered by MD. cp 08:51 Discharged to home ambulatory. em 08:51 Condition: good 08:51 Discharge instructions given to patient, Instructed on discharge instructions, follow up and referral plans. medication usage, Demonstrated understanding of instructions, follow-up care, medications, Prescriptions given X 2. 08:52 Patient left the ED. em Signatures: Josefa Doty mr Gold Flower, RN RN em Cherelle Rock RN RN Jose Coreas PA PA cp
[2020-01-03] MEDS ORDERED: FAMOTIDINE 20 MG TAB ONE (08:41)
[2020-01-03] MEDS ORDERED: DIPHENHYDRAMINE 25 MG TAB/CAP ONE (08:41)
[2020-01-03 08:56] VITALS: BP 113/63; TEMP 98.1; O2SAT 99
[2020-01-03 11:48] LABS: Urine Blood NEGATIVE (NEG); Urine Glucose NEGATIVE (NEG); Urine Protein NEGATIVE (NEG); Urine pH 6.5 (5.0-7.0)
== END 2020-01-03 08:52 | disposition home or self-care (01) ==
LOC: ER 08:12
DX: L50.9 Urticaria, unspecified (principal)
CPT/HCPCS: 81003; 81025; 99283

== ENCOUNTER 2021-11-11 04:04 | Emergency (ER) | payer SELFPAY ==
--- OUTSIDE RECORDS SUMMARY | 2021-11-11 04:08 | XMS REPORT | Continuity of Care Document ---
:2000 Author Organization [facility] t Address [address] [place] [id number] Care Team Providers Name Role Phone PCP, DOES NOT HAVE A Primary Care Physician Unavailable Chano FELIPE Attending Clinician Unavailable Chano Felipe DO Attending Clinician Problems Condition Condition Condition Status Onset Resolution Last Treating Co mments Source Name Details Category Date Date Treatment Clinician Date No known No known Disease Unive rs active active ity of problems problems [facility] Allergies, Adverse Reactions, Alerts Allergy Allergy Status Severity Reaction(s) Onset Inactive Treating Comm ents Source Name Type Date Date Clinician NO KNOWN Drug Active [facility] ALLERGIE Class ity of [facility] Social History Social Habit Start Date Stop Date Quantity Comments Source Exposure to Not sure [facility] SARS-CoV-2 (event) Medica l Branch Sex Assigned At [birth year] [facility] 00:00:00 00:00:00 [facility] Smoking Status Start Date Stop Date Source Unknown if ever smoked [facility] Medications Ordered Filled Start Stop Current Ordering Indication Dosage Frequency Signature Comments Components Source Medication Medication Date Date Medication? Clinician (SIG) Name Name No known No Univers medications 09-25 ity of 00:07: [place] [address] [facility] Vital Signs Vital Name Observation Time Observation Value Comments Source Diastolic blood 2021-09-25 06:10:00 73 mm[Hg] Unive rsity of pressure [facility] Heart rate 2021-09-25 06:10:00 79 /min [facility] Body temperature 2021-09-25 06:10:00 37.22 Starla [facility] Respiratory rate 2021-09-25 06:10:00 16 /min [facility] Body height 2021-09-25 06:10:[address] [facility] Body weight 2021-09-25 06:10:[address] [facility] BMI 2021-09-25 06:10:00 25.70 kg/m2 [facility] Oxygen saturation in 2021-09-25 06:10:00 99 /min [facility] Arterial blood by [facility] Pulse oximetry Branch Systolic blood 2021-09-25 06:10:00 117 mm[Hg] [facility] sity of pressure [facility] Procedures Procedure Date / Time Performed Performing Clinician Sour e CONSENT/REFUSAL FOR 2021-09-25 05:53:32 Doctor Unassigned, No [facility] DIAGNOSIS AND Name [facility] TREATMENT NOTICE OF PRIVACY 2021-09-25 05:53:16 Doctor Unassigned, No [facility] PRACTICES Name [facility] Encounters Start End Encounter Admission Attending Care Care Encounter Source Date/Time Date/Time Type Type Clinicians Facility Department ID 2021-09-25 2021-09-25 Emergency X MATTEO NDKENRICK ERT [id number] [facility] 00:20:00 00:31:00 BRENDA orr [facility] 2021-09-25 2021-09-[address] [facility] [id number] Univers 00:20:00 00:31:00 Brenda RODRIGUEZ [id number] dominga [facility] [id number] [facility] [id number] [facility] 084 Branch Results This patient has no known results.
[2021-11-11] MEDS ORDERED: NA CHLORIDE 0.9% 1,000 ML ONE (04:14)
[2021-11-11] MEDS ORDERED: THIAMINE 200 MG/2 ML INJ ONE (04:19)
--- NOTE | 2021-11-11 04:23 | ER ---
Nurse's Notes [facility] Name: Luciano Santiago Age: 21 yrs Sex: Female : 2000 Arrival Date: 11/11/2021 Time: 04:05 Bed 19 Private MD: Diagnosis: Alcohol abuse with intoxication;Fall on same level, unspecified;Unspecified injury of head, initial encounter;UTI/ Urinary tract infection, site not specified Presentation: 11/11 04:06 Chief complaint: EMS states: "patient was found unresponsive in bed by girlfriend after al4 going to the bathroom and falling. patient has a L forehead injury, GCS 15, and is able to speak but "not speaking by choice". Patient has been out drinking all day for her birthday and gf states has had "a lot of crown and cokes.". Coronavirus screen: Vaccine status: Patient reports receiving the 2nd dose of the covid vaccine. Ebola Screen: No symptoms or risks identified at this time. Initial Sepsis Screen: Does the patient meet any 2 criteria? No. Patient's initial sepsis screen is negative. Does the patient have a suspected source of infection? No. Patient's initial sepsis screen is negative. Risk Assessment: Do you want to hurt yourself or someone else? Patient reports no desire to harm self or others. Onset of symptoms was November 11, 2021. 04:06 Method Of Arrival: EMS al4 04:06 Acuity: CAITY 3 al4 04:30 Care prior to arrival: Cervical collar in place. Medication(s) given: Normal saline al4 infusion, 500 mL, zofran 4 mg. Triage Assessment: 04:13 General: Appears in no apparent distress. uncomfortable, Behavior is cooperative, al4 anxious, crying. Pain: Denies pain. EENT: No signs and/or symptoms were reported regarding the EENT system. Neuro: Level of Consciousness is awake, alert, obeys commands, Oriented to person, place. Cardiovascular: Cardiovascular: Capillary refill < 3 seconds Patient's skin is warm and dry. Respiratory: Airway is patent Respiratory effort is even, unlabored, Respiratory pattern is regular, symmetrical. GI: No signs and/or symptoms were reported involving the gastrointestinal system. : No signs and/or symptoms were reported regarding the genitourinary system. Derm: red knot on L forehead from fall. Musculoskeletal: Circulation, motion, and sensation intact. Range of motion: intact in all extremities. CRITICAL CARE PHYSICIAN ASSISTANT: 06:24 LMP 10/24/2021 al4 Historical: - Allergies: 04:13 No Known Allergies; al4 - Immunization history:: Adult Immunizations up to date, Client reports receiving the 2nd dose of the Covid vaccine. - Social history:: Smoking status: Patient denies any tobacco usage or history of. - Family history:: not pertinent. Screenin:15 Abuse screen: Denies threats or abuse. Nutritional screening: No deficits noted. al4 Tuberculosis screening: No symptoms or risk factors identified. Fall Risk Fall in past 12 months (25 points). IV access (20 points). Ambulatory Aid- None/Bed Rest/Nurse Assist (0 pts). Gait- Normal/Bed Rest/Wheelchair (0 pts) Mental Status- Overestimates/Forgets Limitations (15 pts.). Total Khan Fall Scale indicates High Risk Score (45 or more points). Fall prevention measures have been instituted. Side Rails Up X 2 Placed Close to Nursing Station Frequent Obs/Assessments Occuring As available patient and family educated on Fall Prevention Program and Strategies. Assessment: 04:15 Reassessment: see triage assessment. al4 04:31 Reassessment: patients fiance at bedside. al4 04:55 Reassessment: patient on bed ventura for urine sample. al4 05:05 Reassessment: Patient is awake and alert. Patient is oriented to self, place, and al4 situation. Fiance at bedside. Patient denies pain at this time. . 06:02 Reassessment: patient awake and alert. patient is oriented to self, place, situation. al4 patient denies pain at this time. Vital Signs: 04:06 BP 118 / 73; Pulse 115; Resp 20; Temp 97.7; Pulse Ox 100% on R/A; Weight 61.23 kg (R); al4 Height 5 ft. 1 in. (154.94 cm) (R); Pain 0/10; 04:40 BP 123 / 81; Pulse 109; Resp 18 S; Pulse Ox 100% on R/A; al4 05:54 BP 125 / 87; Pulse 97; Resp 18 S; Pulse Ox 100% on R/A; Pain 0/10; al4 06:25 BP 110 / 72; Pulse 91; Resp 18 S; Pulse Ox 100% on R/A; al4 04:06 Body Mass Index 25.51 (61.23 kg, 154.94 cm) al4 Thalia Coma Score: 04:13 Eye Response: spontaneous(4). Verbal Response: oriented(5). Motor Response: obeys teena commands(6). Total: 15. 04:20 Eye Response: spontaneous(4). Verbal Response: oriented(5). Motor Response: obeys teena commands(6). Total: 15. 06:25 Eye Response: spontaneous(4). Verbal Response: oriented(5). Motor Response: obeys al4 commands(6). Total: 15. ED Course: 04:05 Patient arrived in ED. wm 04:06 aVn Smith is Primary Nurse. al4 04:06 Jose Mena MD is Attending Physician. teena 04:13 Triage completed. al4 04:14 Arm band placed on right wrist. al4 04:15 Patient has correct armband on for positive identification. Bed in low position. Side al4 rails up X2. packaging sales consultant on. Pulse ox on. NIBP on. 04:21 EKG done, by ED staff, reviewed by Jose Mena MD. ll3 04:56 Acetaminophen Sent. al4 04:56 Basic Metabolic Panel Sent. al4 04:56 CBC with Diff Sent. al4 04:56 ETOH Level Sent. al4 04:56 Maintain EMS IV. Dressing intact. Good blood return noted. Site clean \\T\\ dry. Gauge \\T\\ al 4 site: 20G L ac. 05:02 CT Head Brain wo Cont In Process Unspecified. EDMS 06:18 No provider procedures requiring assistance completed. IV discontinued, intact, al4 bleeding controlled, No redness/swelling at site. Pressure dressing applied. Administered Medications: 04:20 Drug: Thiamine 100 mg {Note: route and dose checked with KAMAR Orr .} Route: IV; al4 Rate: per protocol; Site: left antecubital; 04:20 Follow up: IV Status: Completed infusion al4 04:30 Drug: NS 0.9% 1000 ml Route: IV; Rate: 1 bolus; Site: left antecubital; al4 06:14 Follow up: IV Status: Completed infusion; IV Intake: 1000ml al4 06:13 Drug: Rocephin (cefTRIAXone) 1 grams Route: IV; Rate: per protocol; Site: left al4 antecubital; 06:13 Follow up: IV Status: Completed infusion; IV Intake: 10ml al4 Intake: 06:13 IV: 10ml; Total: 10ml. al4 06:14 IV: 1000ml; Total: 1010ml. al4 Outcome: 04:23 Discharge ordered by . teena 05:55 Discharge ordered by . teena 06:18 Discharged to home ambulatory, with significant other. al4 06:18 Condition: stable 06:18 Discharge instructions given to patient, significant other, Instructed on discharge instructions, follow up and referral plans. medication usage, Demonstrated understanding of instructions, follow-up care, medications, Prescriptions given X 1. 06:26 Patient left the ED. al4 Signatures: Dispatcher [employer] EDMS Jose Mena MD MD cha Marsh, Wendy wm Loubet, Lynsea, RN RN 3 [place] al4 Corrections: (The following items were deleted from the chart) 04:15 04:06 BP 118 / 73; Pulse 115bpm; Resp 20bpm; Pulse Ox 100% RA; 61.23 kg Reported; al4 Height 5 ft. 1 in. Reported; BMI: 25.5; Pain 0/10; al4 04:31 04:06 Chief complaint: EMS states: "patient was found unresponsive in bed by girlfriend al4 after going to the bathroom and falling. patient has a L forehead injury, GCS 15, and is able to speak but "not speaking by choice". Patient has been out drinking all day for her birthday and gf states has had "a lot of crown and cokes." al4 04:33 04:20 Thiamine 100 mg IV at per protocol in left antecubital al4 al4 04:33 04:32 IV Status: Completed infusion al4 al4 06:01 04:13 Derm: No signs and/or symptoms reported regarding the dermatologic system. al4 al4
--- NOTE | 2021-11-11 04:23 | EDPHYS ---
Physician Documentation [facility] Name: Luciano Santiago Age: 21 yrs Sex: Female : 2000 Arrival Date: 11/11/2021 Time: 04:05 Bed 19 Private MD: ED Physician Jose Mena HPI: 11/11 04:13 This 21 yrs old Female presents to ER via EMS with complaints of Head Injury teena With LOC-Adult. 04:13 The patient or guardian reports pain. The complaints affect the forehead. Context of teena injury: The problem was sustained at home, resulted from a fall. Onset: The symptoms/episode began/occurred just prior to arrival. Associated signs and symptoms: The patient has no apparent associated signs or symptoms, Loss of consciousness: This patient did not experience any loss of consciousness. Severity of symptoms: At their worst the symptoms were mild, in the emergency department the symptoms are unchanged. The patient has not experienced similar symptoms in the past. 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 - Social history:: Smoking status: Patient denies any tobacco usage or history of. - Family history:: not pertinent. ROS: 04:13 Constitutional: Negative for fever, chills, and weight loss, Eyes: Negative for injury, teena pain, redness, and discharge, ENT: Negative for injury, pain, and discharge, Neck: Negative for injury, pain, and swelling, Cardiovascular: Negative for chest pain, palpitations, and edema, Respiratory: Negative for shortness of breath, cough, wheezing, and pleuritic chest pain, Abdomen/GI: Negative for abdominal pain, nausea, vomiting, diarrhea, and constipation, Back: Negative for injury and pain, : Negative for injury, bleeding, discharge, and swelling, MS/Extremity: Negative for injury and deformity, Skin: Negative for injury, rash, and discoloration, Psych: Negative for depression, anxiety, suicide ideation, homicidal ideation, and hallucinations, Allergy/Immunology: Negative for hives, rash, and allergies, Endocrine: Negative for neck swelling, polydipsia, polyuria, polyphagia, and marked weight changes, Hematologic/Lymphatic: Negative for swollen nodes, abnormal bleeding, and unusual bruising. 04:13 Neuro: Positive for headache, weakness. Exam: 04:13 Constitutional: This is a well developed, well nourished patient who is awake, alert, teena and in no acute distress. Eyes: Pupils equal round and reactive to light, extra-ocular motions intact. Lids and lashes normal. Conjunctiva and sclera are non-icteric and not injected. Cornea within normal limits. Periorbital areas with no swelling, redness, or edema. ENT: Nares patent. No nasal discharge, no septal abnormalities noted. Tympanic membranes are normal and external auditory canals are clear. Oropharynx with no redness, swelling, or masses, exudates, or evidence of obstruction, uvula midline. Mucous membranes moist. Neck: Trachea midline, no thyromegaly or masses palpated, and no cervical lymphadenopathy. Supple, full range of motion without nuchal rigidity, or vertebral point tenderness. No Meningismus. Chest/axilla: Normal chest wall appearance and motion. Nontender with no deformity. No lesions are appreciated. Cardiovascular: Regular rate and rhythm with a normal S1 and S2. No gallops, murmurs, or rubs. Normal PMI, no JVD. No pulse deficits. Respiratory: Lungs have equal breath sounds bilaterally, clear to auscultation and percussion. No rales, rhonchi or wheezes noted. No increased work of breathing, no retractions or nasal flaring. Abdomen/GI: Soft, non-tender, with normal bowel sounds. No distension or tympany. No guarding or rebound. No evidence of tenderness throughout. Back: No spinal tenderness. No costovertebral tenderness. Full range of motion. Female : Normal external genitalia. Skin: Warm, dry with normal turgor. Normal color with no rashes, no lesions, and no evidence of cellulitis. MS/ Extremity: Pulses equal, no cyanosis. Neurovascular intact. Full, normal range of motion. Neuro: Awake and alert, GCS 15, oriented to person, place, time, and situation. Cranial nerves II-XII grossly intact. Motor strength 5/5 in all extremities. Sensory grossly intact. Cerebellar exam normal. Normal gait. Psych: Awake, alert, with orientation to person, place and time. Behavior, mood, and affect are within normal limits. 04:13 Head/face: Noted is abrasion(s), that are moderate, contusion, that is superficial, of the forehead. 04:13 Eyes: Exam is negative for acute changes. 04:13 ENT: Exam is negative for acute changes. 04:13 Neck: Exam negative for 04:28 ECG was reviewed by the Attending Physician. [facility] Vital Signs: 04:06 BP 118 / 73; Pulse 115; Resp 20; Temp 97.7; Pulse Ox 100% on R/A; Weight 61.23 kg (R); al4 Height 5 ft. 1 in. (154.94 cm) (R); Pain 0/10; 04:40 BP 123 / 81; Pulse 109; Resp 18 S; Pulse Ox 100% on R/A; al4 05:54 BP 125 / 87; Pulse 97; Resp 18 S; Pulse Ox 100% on R/A; Pain 0/10; al4 06:25 BP 110 / 72; Pulse 91; Resp 18 S; Pulse Ox 100% on R/A; al4 04:06 Body Mass Index 25.51 (61.23 kg, 154.94 cm) al4 Thalia Coma Score: 04:13 Eye Response: spontaneous(4). Verbal Response: oriented(5). Motor Response: obeys teena commands(6). Total: 15. 04:20 Eye Response: spontaneous(4). Verbal Response: oriented(5). Motor Response: obeys teena commands(6). Total: 15. 06:25 Eye Response: spontaneous(4). Verbal Response: oriented(5). Motor Response: obeys al4 commands(6). Total: 15. MDM: 04:07 Patient medically screened. [facility] 04:20 Data reviewed: vital signs, nurses notes, lab test result(s). [facility] 11/11 04:07 Order name: Acetaminophen [facility] 11/11 04:07 Order name: Basic Metabolic Panel [facility] 11/11 04:07 Order name: CBC with Diff 11/11 04:07 Order name: ETOH Level [facility] 11/11 04:07 Order name: Hepatic Function; Complete Time: 05:52 [facility] 11/11 04:07 Order name: PT-INR; Complete Time: 04:49 [facility] 11/11 04:07 Order name: Ptt, Activated; Complete Time: 04:49 [facility] 11/11 04:07 Order name: Salicylate; Complete Time: 05:52 [facility] 11/11 04:07 Order name: Urine Drug Screen teena 11/11 04:08 Order name: Acetaminophen Level; Complete Time: 05:52 EDMT 11/11 04:08 Order name: Basic Metabolic Panel; Complete Time: 05:52 EDMT 11/11 04:08 Order name: CBC with Automated Diff; Complete Time: 04:49 EDMT 11/11 04:08 Order name: Alcohol Serum/Plasma; Complete Time: 05:52 EDMT 11/11 05:25 Order name: Urine Dipstick-Ancillary; Complete Time: 05:52 EDMT 11/11 04:07 Order name: EKG; Complete Time: 04:08 [facility] 11/11 04:07 Order name: EKG - Nurse/Tech; Complete Time: 04:18 [facility] 11/11 04:07 Order name: IV Saline Lock; Complete Time: 04:16 [facility] 11/11 04:07 Order name: Labs collected and sent; Complete Time: 04:16 [facility] 11/11 04:07 Order name: Suicide Screening ([place]); Complete Time: 04:56 [facility] 11/11 04:07 Order name: Urine Dipstick-Ancillary (obtain specimen); Complete Time: 05:27 [facility] 11/11 04:07 Order name: Urine Test (obtain specimen); Complete Time: 05:27 [facility] 11/11 04:07 Order name: CT Head Brain wo Cont 11/11 05:25 Order name: Urine --Ancillary (enter results); Complete Time: 05:52 mw2 EC:28 Rate is 115 beats/min. Rhythm is regular. QRS [place] is Normal. [place] interval is normal. [facility] QRS interval is normal. QT interval is normal. No Q waves. T waves are Normal. No ST changes noted. Clinical impression: NSR w/ Non-specific ST/T Changes and No evidence of ischemia. Interpreted by me. Reviewed by me. Administered Medications: 04:20 Drug: Thiamine 100 mg {Note: route and dose checked with KAMAR Orr .} Route: IV; al4 Rate: per protocol; Site: left antecubital; 04:20 Follow up: IV Status: Completed infusion al4 04:30 Drug: NS 0.9% 1000 ml Route: IV; Rate: 1 bolus; Site: left antecubital; al4 06:14 Follow up: IV Status: Completed infusion; IV Intake: 1000ml al4 06:13 Drug: Rocephin (cefTRIAXone) 1 grams Route: IV; Rate: per protocol; Site: left al4 antecubital; 06:13 Follow up: IV Status: Completed infusion; IV Intake: 10ml al4 Disposition Summary: 11/11/21 05:55 Discharge Ordered Location: Home(11/11/21 05:55) teena Problem: new(11/11/21 05:55) teena Symptoms: have improved(11/11/21 05:55) teena Condition: Stable(11/11/21 05:55) teena Diagnosis - Alcohol abuse with intoxication(11/11/21 05:55) teena - Fall on same level, unspecified(11/11/21 05:55) teena - Unspecified injury of head, initial encounter teena - UTI/ Urinary tract infection, site not specified teena Followup: teena - With: Private Physician - When: 1 - 2 days - Reason: Recheck today's complaints, Continuance of care, Re-evaluation by your physician Discharge Instructions: - Discharge Summary Sheet teena - Alcohol Intoxication teena - Head Injury, Adult teena - Alcohol Intoxication, Kfvs-pu-Ivpj teena - Urinary Tract Infection, Adult teena - Urinary Tract Infection, Adult, Tiir-ym-Crdc teena - Alcohol Abuse and Nutrition teena - Head Injury, Adult, Frro-oa-Uodu teena Forms: - Medication Reconciliation Form teena - Thank You Letter teena - Antibiotic Education teena - Prescription Opioid Use teena - Work release form mw2 Prescriptions: - Bactrim DS 800-160 mg Oral Tablet - take 1 tablet by ORAL route every 12 hours for 5 days; 10 tablet; Refills: 0, teena Product Selection Permitted Signatures: Dispatcher [employer] Jose Washburn MD MD cha Ledbetter, Alexis al4 Corrections: (The following items were deleted from the chart) 04:20 04:13 Chest/axilla: Exam negative for teena teena 04: 04:23 Home teena teena 04: 04:23 new teena teena 04:26 04:23 have improved teena teena 04: 04:23 Stable teena teena 04: 04:23 Alcohol abuse with intoxication teena teena 04:23 Fall on same level, unspecified teena teena 04:23 Crushing injury of other parts of head - forehead teena teena
[2021-11-11 04:41] LABS: Protime INR 0.99
[2021-11-11 04:42] LABS: Absolute Lymphocytes (CBC) 1.7 K/uL (0.7-4.9); MPV 7.2 fL (7.6-11.3); RBC Red Blood Cell Count 4.22 M/uL (3.86-4.86)
[2021-11-11 05:03] LABS: ALT/SGPT 21 U/L (12-78); AST/SGOT 15 U/L (15-37); Albumin 3.3 g/dL (3.4-5.0); Alkaline Phosphatase 51 U/L (45-117); BUN Blood Urea Nitrogen 9 mg/dL (7-18); Bicarbonate 22 mmol/L (21-32); Bilirubin Direct < 0.1 mg/dL (0-0.2); Bilirubin Total 0.2 mg/dL (0.2-1.0); Glucose Level 98 mg/dL (74-106); Potassium 3.8 mmol/L (3.5-5.1); Protein, Total 6.4 g/dL (6.4-8.2); Sodium Level 146 mmol/L (136-145)
[2021-11-11 05:25] LABS: Urine Blood Negative (Negative); Urine Glucose Negative (Negative); Urine Protein Negative (Negative)
[2021-11-11] MEDS ORDERED: CEFTRIAXONE 1000 MG/VIAL ONE (06:10)
[2021-11-11 06:13] LABS: Barbiturates NEGATIVE (NEGATIVE); Benzodiazepines NEGATIVE (NEGATIVE); Cocaine NEGATIVE (NEGATIVE); METHAMPHETAM NEGATIVE (NEGATIVE); Opiates NEGATIVE (NEGATIVE); Phencyclidine NEGATIVE (NEGATIVE); THC Cannibis NEGATIVE (NEGATIVE)
[2021-11-11 06:15] LABS: Methadone NEGATIVE (NEGATIVE)
[2021-11-11 06:32] VITALS: TEMP 97.7; O2SAT 100
[2021-11-11 06:35] VITALS: BP 110/72
--- NOTE | 2021-11-11 11:37 | RAD REPORT ---
EXAM DESCRIPTION: CT - Head Brain Wo Cont - 11/11/2021 6:44 am CLINICAL HISTORY: HEADACHE COMPARISON: None. TECHNIQUE: CT HEAD WITHOUT IV CONTRAST on 11/11/2021 4:07 AM OFFICE CLIN ASST This exam was performed according to our departmental dose-optimization program, which includes autom ated exposure control, adjustment of the mA and/or kV according to patient size and/or use of iterati ve reconstruction technique. FINDINGS: There is no acute hemorrhage, mass effect or midline shift. Timmons-white differentiation is preserved. There is no hydrocephalus. There is no significant volume loss for age. The calvarium is intact. Orbits and globes are unremarkable. The paranasal sinuses are clear. Mastoid air cells are clear. IMPRESSION: No acute intracranial findings. Electronically signed by: Michael Gardner MD 11/11/2021 5:39 AM OFFICE CLIN ASST Due to temporary technical issues with the PACS/Fluency reporting system, reports are being signed by the in house radiologist without review as a courtesy to ensure prompt reporting. The interpreting r adiologist is fully responsible for the content of the report.
--- NOTE | 2021-11-11 13:03 | EKG ---
Test Date: 2021-11-11 Test Time: 04:16:51 Film Sound Engineer: ROHIT MEASUREMENT RESULTS: Intervals: Rate: 103 VT: 150 QRSD: 76 QT: 358 QTc: 468 Mcclellan: P: 63 VT: 150 QRS: 84 T: 57 INTERPRETIVE STATEMENTS: Sinus tachycardia Otherwise normal ECG No previous ECG available for comparison Electronically Signed On 11-11-21 13:02:45 PROJECT ACCOUNT MANAGER by Krishna Sawyer
== END 2021-11-11 06:26 | disposition home or self-care (01) ==
LOC: ER 04:04
DX: S09.90XA Unspecified injury of head, initial encounter (principal); F10.129 Alcohol abuse with intoxication, unspecified; N39.0 Urinary tract infection, site not specified; W18.30XA Fall on same level, unspecified, initial encounter
CPT/HCPCS: 36415; 70450; 80048; 80076; 80307; 80320; 80329; 81003; 81025; 85025; 85610; 85730; 93005; 96361; 96374; 96375; 99285; J3411; J7030

== ENCOUNTER 2024-09-19 14:15 | Emergency (ER) | payer SELFPAY ==
--- OUTSIDE RECORDS SUMMARY | 2024-09-19 14:19 | XMS REPORT | Continuity of Care Document ---
Author Name Unknown Address [address] [place] [address] [facility] thconnect Address [address] [facility] [address] [place] [address] Care Team Providers Care Chief Optometry Service Name Role Phone PCP, PATIENT DOES NOT HAVE A Primary Care Physic bridgette Unavailable Hugo Tomlinson MD Attending Clinician [phone] HUGO TOMLINSON Attending Clinician Unavailable HUGO TOMLINSON Attending Clinician Unavailable [id number] Attending Clinician Unavaila ble LIANNA FELIPE Attending Clinician Unavailab le [id number]_S Admitting Clinician Unavaila ble Allergies, Adverse Reactions, Alerts Allergy Name Allergy Type Status Severity Reaction(s) Onset Date Inactive Date Treating Clinician Comments Source NO KNOWN ALLERGIE S Drug Class Active [facility] Social History Social Habit Start Date Stop Date Quantity Comments Source Sexual orientation U [facility] Sex assigned at 2000 00:00:00 2000 00:00:00 [facility] Smoking Status Start Date Stop Date Source Tobacco smoking consumption unknown [facility] Vital Signs Vital Name Observation Time Observation Value Comments S eileen Systolic blood pressure 2024-06-01 14:30:00 113 mm[Hg] [facility] Diastolic blood pressure 2024-06-01 14:30:00 75 mm[Hg] [facility] Heart rate 2024-06-01 14:30:00 82 /min [facility] Body temperature 2024-06-01 14:30:00 37.17 Starla [facility] Respiratory rate 2024-06-01 14:30:00 16 /min [facility] Oxygen saturation in Arterial blood by Pulse oximetry 2024-06-01 14:30:00 97 /min [facility] Body height 2024-06-01 12:31:00 154.9 cm [facility] Body weight 2024-06-01 12:31:00 71.668 kg [facility] BMI 2024-06-01 12:31:00 29.85 kg/m2 [facility] Procedures Procedure Date / Time Performed Performing Clinicia n Source RAPID STREP SCREEN FOR GROUP A 2024-06-01 13:28:00 Hugo Tomlinson [facility] INFLUENZA A/B RSV COVID NAAT 2024-06-01 13:28:00 Hugo Tomlinson [facility] Encounters Start Date/Time End Date/Time Encounter Type Admission Type Attending [facility] Care Department Encounter ID Source 2024-06-01 07:33:00 2024-06-01 09:34:00 Emergency Hugo Tomlinson [facility] [id number] [facility] 2024-06-01 07:33:00 2024-06-01 09:34:00 Emergency X HUGO TOMLINSON JULIO [facility] ERT [id number] [facility] 2023-07-25 00:00:00 2023-07-25 00:00:00 Outpatient [email or web address] [facility] [id number] [facility] 2021-09-25 00:20:00 2021-09-25 00:31:00 Emergency X LIANNA FELIPE [facility] ERT [id number] [facility]
--- NOTE | 2024-09-19 15:06 | ER ---
Nurse's Notes [facility] Name: Luciano Santiago Age: 23 yrs Sex: Female : 2000 Arrival Date: 09/19/2024 Time: 14:15 Bed Waiting Private MD: Diagnosis: ED Course: 09/19 14:20 Patient arrived in ED. im 14:21 Gunnar Duarnd MD is Attending Physician. ec2 14:45 Patient's name was called from ER lobby. No response. Unable to locate patient. Will db disposition as left without being seen by a provider. 14:51 Jose Coreas PA is PHCP. cp 14:51 Jose Mena MD is Attending Physician. cp 15:03 Patient's name was called from ER lobby. No response. Unable to locate patient. Will db disposition as left without being seen by a provider. Administered Medications: No medications were administered Outcome: 15:04 Eloped from waiting room, before seeing physician NOTIFIED REGISTRATION WAS LEAVING db 15:05 Patient left the ED. db Signatures: Jose Coreas PA PA cp Benton, Danielle, RN RN db Suellen Escoto Gunnar Durand MD MD ec2
== END 2024-09-19 15:05 | disposition left against medical advice (07) ==
LOC: ER 14:15
DX: Z02.9 Encounter for administrative examinations, unspecified (principal)